=== PATIENT | female | born 1955 | race Caucasian/White ===

== ENCOUNTER 2018-02-02 20:19 | Emergency (ER) | payer OTHER ==
[~2018-02-02] VITALS: Ht 157.5 cm; Wt 56.7 kg
[2018-02-02 20:19] VITALS: BP 115/61
[2018-02-02] MEDS ORDERED: DOCU-141 GT (20:41)
[2018-02-02] MEDS ORDERED: LEVO50TA8 GT (20:41)
[2018-02-02] MEDS ORDERED: DONE5TAB7 GT (20:41)
[2018-02-02] MEDS ORDERED: ACET-868 GT (20:41)
[2018-02-02] MEDS ORDERED: CRAN3875 GT (20:41)
[2018-02-02] MEDS ORDERED: ACET-2605 GT (20:41)
[2018-02-02] MEDS ORDERED: MAGN2400 GT (20:41)
[2018-02-02] MEDS ORDERED: LEVE500T9 GT ×2 (20:41)
[2018-02-02] MEDS ORDERED: VITA1TAB20 GT (20:41)
[2018-02-02] MEDS ORDERED: ATOR20TA GT (20:41)
[2018-02-02] MEDS ORDERED: ASPI-1169 GT (20:41)
[2018-02-02 20:42] LABS: BASOPHILS # (AUTO) 0.1 /CMM (0.0-0.2); EOSINOPHILS % (AUTO) 2.4 % (0.0-6.0); HEMATOCRIT 31 % (33-45); HEMOGLOBIN 10.8 g/dL (11.5-14.8); LYMPHOCYTES # (AUTO) 2.9 /CMM (0.8-4.8); LYMPHOCYTES % (AUTO) 30.5 % (20.0-44.0); MEAN CORPUSCULAR HGB CONC 35 g/dl (31.0-36.0); MEAN CORPUSCULAR VOLUME 93 fL (82-100); MONOCYTES # (AUTO) 0.7 /CMM (0.1-1.30); NEUTROPHILS # (AUTO) 5.6 /CMM (1.8-8.9); NEUTROPHILS % (AUTO) 59.1 % (43.0-81.0); PLATELET COUNT (AUTO) 262 /CMM (150-450); RDW COEFFICIENT OF VARIATION 16.3 (11.5-15.0); RED BLOOD CELL COUNT(AUTO) 3.34 MIL/uL (4.0-5.2); WHITE BLOOD COUNT (AUTO) 9.5 K/uL (4.3-11.0)
[2018-02-02 20:53] LABS: CALCIUM, SERUM 9.3 mg/dL (8.5-10.1); CARBON DIOXIDE 29 mmol/L (21-32); CHLORIDE 106 mmol/L (98-107); CREATININE 0.8 mg/dL (0.6-1.3); GLUCOSE 101 mg/dL (74-106); POTASSIUM 3.4 mmol/L (3.5-5.1); SODIUM SERUM 142 mmol/L (136-145); UREA NITROGEN, BLOOD 23 mg/dL (7-18)
[2018-02-02 20:58] LABS: ALANINE AMINOTRANSFERASE 21 U/L (12-78); ALBUMIN 3.8 g/dL (3.4-5.0); ALCOHOL, BLOOD < 3 mg/dL (0-0); ALKALINE PHOSPHATASE 63 U/L (46-116); ASPARTATE AMINOTRANSFERASE 17 U/L (15-37); BILIRUBIN,DIRECT 0.2 mg/dL (0.0-0.2); BILIRUBIN,TOTAL 0.4 mg/dL (0.2-1.0); SALICYLATE 1.9 mg/dL (2.8-20.0); TOTAL PROTEIN, SERUM 7.6 g/dL (6.4-8.2)
[2018-02-02 20:59] LABS: ACETAMINOPHEN < 2 ug/ml (10-30)
[2018-02-02] MEDS ORDERED: HALOPERIDOL LACTATE INJ 5 MG/ML VIAL ONE (21:00)
[2018-02-02] MEDS: HALOPERIDOL LACTATE INJ 5 MG/ML VIAL IM ONE (21:06)
--- NOTE | 2018-02-02 23:05 | NUR ---
REPORT GIVEN TO [facility] ELIECER CARR FOR HU
--- NOTE | 2018-02-02 23:22 | NUR ---
[facility] bedside for pt transport.
== END 2018-02-02 23:49 | disposition home or self-care (01) ==
LOC: ER 20:22
DX: F03.90 Unspecified dementia, unspecified severity, without behavioral disturbance, psychotic disturbance, mood disturbance, and anxiety (principal); R45.1 Restlessness and agitation; K21.9 Gastro-esophageal reflux disease without esophagitis; E78.5 Hyperlipidemia, unspecified; E03.9 Hypothyroidism, unspecified; Z79.82 Long term (current) use of aspirin
CPT/HCPCS: 36415; 80048-TC; 80076-TC; 80305; 81000-TC; 85025-TC; A4606; G0480; J1630; Z7610

== ENCOUNTER 2019-02-21 17:30 | Inpatient (IN) | payer OTHER ==
[~2019-02-21] VITALS: Ht 152.4 cm; Wt 41.7 kg
[~2019-02-21 17:30] MED LIST: ACET-2605 GT; ACET-868 GT; ASPI-1169 PO; ATOR20TA GT; CRAN3875 GT; DOCU-141 GT; DONE5TAB7 GT; LEVE500T9 GT; LEVE500T9 PO; LEVO50TA8 GT; MAGN2400 GT; VITA1TAB20 GT
--- NOTE | 2019-02-21 17:35 | NUR ---
DAUGHTER, YUDI ANTHONY, .
--- NOTE | 2019-02-21 17:40 | NUR ---
BRUCE FROM [facility] FOR WITNESSED SZ, HX OF EPILEPSY; PT AAOX0, PT ON MONITOR, VSS, NAD NOTED, PENDING MD HERR
[2019-02-21] MEDS ORDERED: LORAZEPAM INJ 2 MG/ML VIAL ONE (17:49)
[2019-02-21] MEDS ORDERED: HALO2TAB PO (17:50)
[2019-02-21] MEDS ORDERED: CRAN425C6 PO (17:50)
[2019-02-21] MEDS ORDERED: DONE5TAB7 PO (17:50)
[2019-02-21] MEDS ORDERED: CLON1TAB PO (17:50)
[2019-02-21] MEDS ORDERED: ACET-73 PO (17:59)
[2019-02-21] MEDS ORDERED: CRAN3875 PO (17:59)
[2019-02-21] MEDS ORDERED: ATOR20TA PO (17:59)
[2019-02-21] MEDS ORDERED: ACET650T10 PO (17:59)
[2019-02-21] MEDS ORDERED: LEVO50TA8 PO (17:59)
[2019-02-21] MEDS ORDERED: LORAZEPAM INJ 2 MG/ML VIAL IVP ONE (18:00)
[2019-02-21 18:04] LABS: BASOPHILS % (AUTO) 0.1 % (0.0-2.0); HEMATOCRIT 36 % (33-45); HEMOGLOBIN 11.9 g/dL (11.5-14.8); LYMPHOCYTES # (AUTO) 0.9 /CMM (0.8-4.8); LYMPHOCYTES % (AUTO) 5.5 % (20.0-44.0); MEAN CORPUSCULAR HGB CONC 33 g/dl (31.0-36.0); MEAN CORPUSCULAR VOLUME 95 fL (82-100); MONOCYTES # (AUTO) 0.8 /CMM (0.1-1.30); MONOCYTES % (AUTO) 4.9 % (2.0-12.0); NEUTROPHILS # (AUTO) 15.3 /CMM (1.8-8.9); NEUTROPHILS % (AUTO) 89.5 % (43.0-81.0); PLATELET COUNT (AUTO) 177 /CMM (150-450); RED BLOOD CELL COUNT(AUTO) 3.75 MIL/uL (4.0-5.2); WHITE BLOOD COUNT (AUTO) 17.1 K/uL (4.3-11.0)
[2019-02-21 18:11] LABS: CALCIUM, SERUM 8.9 mg/dL (8.5-10.1); CREATININE 0.8 mg/dL (0.6-1.3); POTASSIUM 3.3 mmol/L (3.5-5.1)
[2019-02-21] MEDS ORDERED: CEFTRIAXONE 1GM BAG (ER ONLY) 50 ML IV ONE ×2 (19:30→19:39)
[2019-02-21] MEDS ORDERED: IV NS 0.9% 1,000 ML BAG IV ONE (19:30)
[2019-02-21 19:39] LABS: ALANINE AMINOTRANSFERASE 67 U/L (12-78); ALBUMIN 3.8 g/dL (3.4-5.0); ALKALINE PHOSPHATASE 78 U/L (46-116); ASPARTATE AMINOTRANSFERASE 48 U/L (15-37); BILIRUBIN,DIRECT 0.1 mg/dL (0.0-0.2); BILIRUBIN,TOTAL 0.4 mg/dL (0.2-1.0); TOTAL PROTEIN, SERUM 7.2 g/dL (6.4-8.2)
[2019-02-21 20:02] LABS: APPEARANCE,URINE Cloudy (CLEAR); BILIRUBIN,URINE Negative (NEGATIVE); BLOOD, URINE Negative Ery/uL (NEGATIVE); COLOR,URINE Yellow (YELLOW); KETONES,URINE Trace (NEGATIVE); LEUKOCYTE ESTERASE ,URINE Negative (NEGATIVE); NITRITE, URINE Positive (NEGATIVE); PH,URINE 7.5 (5.0-8.0); PROTEIN,URINE 30 mg/dl (NEGATIVE); UGLUCOSE 100 MG/DL mg/dL (NEGATIVE)
[2019-02-21 20:14] LABS: BACTERIA,URINE Many /HPF (None Seen); RBC,URINE 0-2 /HPF (0-2); SQUAMOUS EPITHELIAL CELL,UR Rare /HPF (None Seen); WBC,URINE 0-2 /HPF (0-3)
--- NOTE | 2019-02-21 20:45 | NUR ---
CALLED NURSING SUP. FOR TELE BED
--- NOTE | 2019-02-21 21:03 | NUR ---
TELE 327-2
[2019-02-21] MEDS ORDERED: HALOPERIDOL LACTATE INJ 5 MG/ML VIAL IM STA (21:16)
[2019-02-21] MEDS ORDERED: HALOPERIDOL LACTATE INJ 5 MG/ML VIAL ONE (21:19)
--- NOTE | 2019-02-21 21:29 | NUR ---
REPORT GIVEN TO JANENE GONZÁLES.
[2019-02-21] MEDS ORDERED: ONDANSETRON HCL/PF 4 MG/2 ML VIAL IVP PRN (21:30)
[2019-02-21] MEDS ORDERED: ZOLPIDEM TARTRATE 5 MG TABLET PO PRN (21:30)
[2019-02-21] MEDS ORDERED: Z GUARD REMEDY 2 OZ OINT TP PRN (21:30)
[2019-02-21] MEDS ORDERED: ACETAMINOPHEN 325 MG TABLET PO PRN (21:30)
[2019-02-21] MEDS ORDERED: MAGNESIUM HYDROXIDE 30 ML UDC PO PRN (21:30)
[2019-02-21] MEDS ORDERED: MAG HYDROX/AL HYDROX/SIMETH 30 ML UDC PO PRN (21:30)
--- NOTE | 2019-02-21 21:34 | NUR ---
FOOD AND BEVERAGE ANALYST ADMISSION NOTES RECEIVED PATIENT FROM ER VIA [facility]. DX. SEPSIS. FAMILY AT BEDSIDE. PATIENT IS ALERT X0, CONFUSED. UNABLE TO COMPREHEND. SCREAMS/MOANS CONTINUOUSLY. PER FAMILY PATIENT IS HARD OF HEARING ON BOTH EARS AND CAN ONLY "SHADOWS." BREATHING IS EVEN AND UNLABORED. NO SOB NOTED. ON 2LPM OXYGEN VIA NC. TOLERATING WELL. UNABLE TO ASSESS FOR PAIN PATIENT JUST KEEPS SCREAMING. SKIN DRY AND WARM TO TOUCH, AFEBRILE. PATIENT ATTEMPTS TO REMOVE IV LINE AND NASAL CANNULA. ALSO TRYING TO GET OUT OF BED. FAMILY IS REQUESTING FOR RESTRAINTS - WILL INFORM REGIONAL LIAISON MD. ALL BELONGINGS ACCOUNTED FOR. SKIN ASSESSMENT DONE - NOTED WITH MULTIPLE BROWN BRUISES ON THE LOWER EXTREMITY. FAMILY AT BEDSIDE TRYING TO CALM PATIENT BUT UNSUCCESSFUL. SAFETY MEASURES IN PLACE. CALL LIGHT WITHIN REACH. WILL CONTINUE TO MONITOR CLOSELY.
[2019-02-21 22:00] VITALS: BP 123/70
--- NOTE | 2019-02-21 22:01 | NUR ---
ELECTRIC STOP INSTALLER NOTES PATIENT CONTINUOUSLY TRIES TO PULL ON IV LINE. ATTEMPTING TO GET UP DESPITE FAMILY AT BEDSIDE TRYING TO COME HER DOWN. PATIENT ALSO GRABS REALLY HARD OR ATTEMPTS TO SCRATCH STAFF. PAGED EDGER OPERATOR VICTOR M BALLESTEROS FOR POSSIBLE RESTRAINTS. PER EDGER OPERATOR VICTOR M, OK FOR PATIENT TO HAVE BILATERAL RESTRAINTS. ORDER NOTED AND CARRIED OUT. FAMILY MADE AWARE. WILL CONTINUE TO MONITOR.
--- NOTE | 2019-02-21 23:13 | NUR ---
LIGHT INDUSTRIAL NOTES PATIENT'S REDRAWN LACTIC ACID IS 3.4. ELEVATED FROM THE PRIOR DRAW. INFORMED HEEL GUMMER VICTOR M BALLESTEROS WITH NO NEW ORDERS AT THIS TIME. WILL CONTINUE TO MONITOR.
[2019-02-21] MEDS: HYDROCODONE/APAP 5/325MG 1 EACH TABLET PO PRN (23:18)
[2019-02-21] MEDS: DOCUSATE SODIUM 100 MG CAPSULE PO SCH (23:18)
[2019-02-22] VITALS: BP 128/70
[2019-02-22] MEDS ORDERED: IV PREMIX NS +20MEQ KCL 1 L IV ONE (00:21)
--- NOTE | 2019-02-22 00:57 | NUR ---
FEED WEIGHER NOTES INFORMED COLLECTION MANAGER VICTOR M BALLESTEROS THAT PATIENT IS STILL RESTLESS AND SCREAMING DESPITE THE HALDOL AND ATIVAN GIVEN IN ER. PER COLLECTION MANAGER FAVIAN, ATIVAN 1MG IVP X1 ONLY. ORDER NOTED AND CARRIED OUT.
[2019-02-22] MEDS ORDERED: LORAZEPAM INJ 2 MG/ML VIAL IV PRN (01:00)
[2019-02-22] MEDS: Potassium Chloride 20 MEQ in IV NS 0.9% 1,000 ML IV PRN ×2 (02:26→17:15)
[2019-02-22 04:00] VITALS: BP 118/76
--- NOTE | 2019-02-22 06:30 | NUR ---
TECHNICAL TRAINING MANAGER NOTES IV LINE ON RIGHT HAND NO LONGER WORKING. NOTED LEAKING ON THE SITE. NEW IV LINE INSERTED ON THE LEFT UPPER ARM G#20. GOOD BLOOD RETURN. WILL CONTINUE TO MONITOR.
--- NOTE | 2019-02-22 06:55 | NUR ---
PSYCHOLOGY PROFESSOR CLOSING NOTES PATIENT IN BED. REMAINS RESTLESS. UNABLE TO COMPREHEND OR FOLLOW INSTRUCTIONS ON BILATERAL WRIST RESTRAINTS TO PREVENT PULLING LINES/TUBES. BREATHING EVEN AND UNLABORED. NO SOB NOTED. ON 1LPM OXYGEN VIA NC. UNABLE TO ASSESS PAIN DUE TO MENTAL STATUS, PATIENT JUST CONTINUOUSLY MOANS/SCREAMS DESPITE PAIN MEDICATION. NEW IV LINE ON LEFT UPPER ARM G#20 INSERTED DUE TO PREVIOUS IV LINE LEAKING. IV FLUIDS CURRENTLY INFUSING WELL. SKIN DRY AND WARM TO TOUCH. AFEBRILE. ALL OTHER NEEDS MET. SAFETY MEASURES IN PLACE. CALL LIGHT WITHIN REACH. WILL ENDORSE TO ONCOMING NURSE FOR HU.
[2019-02-22 07:26] LABS: BASOPHILS % (AUTO) 0.2 % (0.0-2.0); EOSINOPHILS % (AUTO) 0.2 % (0.0-6.0); HEMATOCRIT 35 % (33-45); HEMOGLOBIN 11.9 g/dL (11.5-14.8); LYMPHOCYTES # (AUTO) 1.7 /CMM (0.8-4.8); LYMPHOCYTES % (AUTO) 13.5 % (20.0-44.0); MEAN CORPUSCULAR HGB CONC 34 g/dl (31.0-36.0); MEAN CORPUSCULAR VOLUME 94 fL (82-100); MONOCYTES # (AUTO) 0.8 /CMM (0.1-1.30); MONOCYTES % (AUTO) 6.1 % (2.0-12.0); NEUTROPHILS # (AUTO) 9.8 /CMM (1.8-8.9); PLATELET COUNT (AUTO) 151 /CMM (150-450); RED BLOOD CELL COUNT(AUTO) 3.76 MIL/uL (4.0-5.2); WHITE BLOOD COUNT (AUTO) 12.2 K/uL (4.3-11.0)
[2019-02-22] MEDS: LEVOTHYROXINE SODIUM 50 MCG TABLET PO SCH (07:30)
[2019-02-22] MEDS: PANTOPRAZOLE 40 MG TABLET.DR PO SCH (07:30)
[2019-02-22 07:37] LABS: CALCIUM, SERUM 9.1 mg/dL (8.5-10.1); CREATININE 0.6 mg/dL (0.6-1.3); MAGNESIUM 2.4 mg/dL (1.8-2.4); PHOSPHORUS 2.6 mg/dL (2.5-4.9); POTASSIUM 3.5 mmol/L (3.5-5.1)
--- NOTE | 2019-02-22 07:56 | NUR ---
PHARMACY DISTRICT MANAGER NOTES PATIENT AWAKE, LYING IN BED. PATIENT IN NO RESPIRATORY DISTRESS, PATIENT UNABLE TO MAKE NEEDS KNOWN. PATIENT ON BILATERAL WRIST RESTRAINTS, REMOVED AND ASSESSED, NO REDNESS NOTED. SKIN WARM TO TOUCH. PATIENT ON IV NS 20MEQ K AT 75ML/HR, INFUSING WELL ON THE KEN #20G. PATIENT ON NPO STATUS, SWALLOW EVAL STILL PENDING. BED IN LOW AND LOCKED POSITION, SIDE RAILS UP AND PADDED. CALL LIGHT WITHIN REACH. WILL CONTINUE TO MONITOR.
[2019-02-22 08:00] VITALS: BP 119/70
[2019-02-22] MEDS: ASPIRIN 81 MG TAB.CHEW GT SCH (09:00)
[2019-02-22] MEDS: HALOPERIDOL LACTATE 10 MG/5 ML UDC PO SCH (09:00)
[2019-02-22] MEDS: clonazePAM 1 MG TABLET PO SCH (09:00)
[2019-02-22] MEDS: LEVETIRACETAM (250 MG) 250 MG TABLET PO SCH (09:00)
[2019-02-22] MEDS: DONEPEZIL 5 MG TABLET PO SCH (09:00)
[2019-02-22] MEDS ORDERED: HALOPERIDOL 1 MG TABLET PO SCH (09:00)
[2019-02-22] MEDS: CEFTRIAXONE 1 G in IV D5W 50 ML IV SCH (10:09)
[2019-02-22] MEDS: ENSURE ENLIVE 237 ML LIQUID (VANILLA) PO SCH ×2 (12:03→17:24)
[2019-02-22 16:00] VITALS: BP 102/70
--- NOTE | 2019-02-22 17:38 | NUR ---
M/S RN NOTES PATIENT AWAKE, LYING IN BED WITH NO RESPIRATORY DISTRESS NOTED. PATIENT ON 2L OXYGEN VIA NASAL CANULA, TOLERATING WELL. PATIENT WITH NO S/S OF PAIN. IV NS+20MEQ K @75ML/HR, INFUSING WELL. PATIENT SEEN BY SPEECH THERAPIST AND MAT CLEANING MACHINE OPERATOR TODAY, ORDERED PUREED WITH NECTAR THICK DIET. WILL ENDORSE TO ONCOMING NURSE.
--- NOTE | 2019-02-22 19:05 | NUR ---
MS RN OPENING NOTES Patient received laying in bed, awake, with no respiratory distress. Patient on O2 at 2LPM via nasal cannula, tolerating well. Peripheral IV on left upper arm g#20 with NS+20 mEq KCl @7smL/hr. Bilateral soft wrist restraints in place. Safety measures in place, call light within reach. Bed in lowest, locked position, side rails x 3 up. Seizure precaution in place. Patient stable as endorsed by the AM RN. Will continue to monitor accordingly
[2019-02-22 20:00] VITALS: BP 100/75
[2019-02-22 20:39] VITALS: BP 100/75
--- NOTE | 2019-02-22 21:00 | NUR ---
RN NOTES Urine sample obtained- sent to lab
[2019-02-22] MEDS: DOCUSATE SODIUM 100 MG CAPSULE PO SCH (21:12)
[2019-02-22] MEDS: ATORVASTATIN 10 MG TABLET PO SCH (21:12)
[2019-02-23] MEDS: Potassium Chloride 20 MEQ in IV NS 0.9% 1,000 ML IV PRN ×2 (06:15→18:34)
--- NOTE | 2019-02-23 06:58 | NUR ---
MS RN CLOSING NOTES Patient in bed, awake, with no respiratory distress. Patient on O2 at 2LPM via nasal cannula, tolerating well. Peripheral IV on left upper arm g#20 with NS+20 mEq KCl @7smL/hr. Bilateral soft wrist restraints in place. Safety measures in place, call light within reach. Bed in lowest, locked position, side rails x 3 up. Seizure precaution in place. All needs attended and met. Will endorse HU to oncoming RN
[2019-02-23] MEDS: LEVOTHYROXINE SODIUM 50 MCG TABLET PO SCH (07:28)
[2019-02-23] MEDS: ENSURE ENLIVE 237 ML LIQUID (VANILLA) PO SCH ×3 (07:28→17:38)
[2019-02-23] MEDS: PANTOPRAZOLE 40 MG TABLET.DR PO SCH (07:28)
[2019-02-23 07:44] LABS: BASOPHILS % (AUTO) 0.2 % (0.0-2.0); EOSINOPHILS % (AUTO) 0.2 % (0.0-6.0); HEMATOCRIT 33 % (33-45); HEMOGLOBIN 11.2 g/dL (11.5-14.8); LYMPHOCYTES % (AUTO) 12.7 % (20.0-44.0); MEAN CORPUSCULAR HGB CONC 34 g/dl (31.0-36.0); MEAN CORPUSCULAR VOLUME 95 fL (82-100); MONOCYTES % (AUTO) 6.4 % (2.0-12.0); NEUTROPHILS % (AUTO) 80.5 % (43.0-81.0); PLATELET COUNT (AUTO) 138 /CMM (150-450); RED BLOOD CELL COUNT(AUTO) 3.44 MIL/uL (4.0-5.2); WHITE BLOOD COUNT (AUTO) 9.4 K/uL (4.3-11.0)
[2019-02-23 07:45] LABS: LYMPHOCYTES # (AUTO) 1.2 /CMM (0.8-4.8); MONOCYTES # (AUTO) 0.6 /CMM (0.1-1.30); NEUTROPHILS # (AUTO) 7.6 /CMM (1.8-8.9)
[2019-02-23 08:00] VITALS: BP 109/58
[2019-02-23] MEDS: LEVETIRACETAM (250 MG) 250 MG TABLET PO SCH (08:08)
[2019-02-23] MEDS: DONEPEZIL 5 MG TABLET PO SCH (08:08)
[2019-02-23] MEDS: clonazePAM 1 MG TABLET PO SCH (08:08)
[2019-02-23] MEDS: ASPIRIN 81 MG TAB.CHEW GT SCH (08:08)
[2019-02-23 08:10] LABS: CREATININE 0.4 mg/dL (0.6-1.3); PHOSPHORUS 2.4 mg/dL (2.5-4.9); POTASSIUM 3.8 mmol/L (3.5-5.1)
[2019-02-23] MEDS: HALOPERIDOL LACTATE 10 MG/5 ML UDC PO SCH (08:18)
--- NOTE | 2019-02-23 08:39 | NUR ---
M/S RN NOTES PATIENT AWAKE IN BED, NO ACUTE DISTRESS NOTED, NO S/S OF PAIN. SKIN WARM TO TOUCH. IVF OF NS+20MEQ KCL INFUSING @ 75ML/HR ON THE KNE #20, INTACT WITH NO REDNESS AND NO INFILTRATION. BED ON LOW AND LOCKED POSITION, CALL LIGHT WITHIN REACH. WILL CONTINUE TO MONITOR.
[2019-02-23] MEDS: CEFTRIAXONE 1 G in IV D5W 50 ML IV SCH (09:02)
--- NOTE | 2019-02-23 10:30 | NUR ---
MS/RN - CRITICAL VALUE RELAYED BLOOD CULTURE RESULT (GRAM POSITIVE COCCI) TO DR. SMITH WITH NO NEW ORDER AT THIS TIME. PATIENT CURRENTLY ON ROCEPHIN.
[2019-02-23] MEDS ORDERED: Magnesium 1GM/D5W 100ML PREMIX 100 ML IV SCH (11:12)
[2019-02-23] MEDS ORDERED: K PHOS NEUTRAL 250 MG TABLET PO ONE (11:30)
[2019-02-23 16:00] VITALS: BP 142/90
--- NOTE | 2019-02-23 17:57 | NUR ---
M/S RN NOTES PATIENT MORE AWAKE, LYING IN BED. PATIENT WITH NO RESPIRATORY DISTRESS, NO C/O PAIN. SKIN WARM TO TOUCH. IVF OF NS+20MEQ KCL @75ML/HR INFUSING WELL ON KEN #20G. PATIENT REPOSITIONED Q2HRS. REMOVED AND CHECKED SOFT RESTRAINTS Q2HRS WITH NO REDNESS. PATIENT'S APPETITE IMPROVED TODAY WITH PATIENT EATING 50% OF MEALS AND ENSURE ORDERED. BED ON LOW AND LOCKED POSITION, CALL LIGHT WITHIN REACH. WILL ENDORSE TO ONCOMING NURSE.
[2019-02-23] MEDS ORDERED: FEE PK DOSING 1 MIN EA MC ONE (19:36)
--- NOTE | 2019-02-23 19:38 | NUR ---
RN MS OPENING NOTES RECEIVED PATIENT IN BED AWAKE, ALERT TO SELF, BREATHING EVEN AND UNLABORED. NO SOB NOTED. ON 2LPM OXYGEN VIA NC. NO S/S OF PAIN OR DISCOMFORT. NO FACIAL GRIMACING. IV ON LEFT UPPER ARM INTACT AND PATENT WITH IVF INFUSING. SKIN DRY AND WARM TO TOUCH. AFEBRILE. PATIENT ON BILATERAL WRIST RESTRAINTS. NO REDNESS/SKIN BREAKDOWN NOTED. SAFETY MEASURES IN PLACE. CALL LIGHT WITHIN REACH. WILL CONTINUE TO MONITOR.
[2019-02-23] MEDS: VANCOMYCIN 0.75 GM in IV D5W 250 ML IV SCH (20:08)
[2019-02-23 20:14] VITALS: BP 136/76
[2019-02-23] MEDS: DOCUSATE SODIUM 100 MG CAPSULE PO SCH (21:54)
[2019-02-23] MEDS: ATORVASTATIN 10 MG TABLET PO SCH (21:54)
[2019-02-24 06:23] LABS: BASOPHILS % (AUTO) 0.2 % (0.0-2.0); EOSINOPHILS % (AUTO) 0.8 % (0.0-6.0); HEMATOCRIT 32 % (33-45); HEMOGLOBIN 10.9 g/dL (11.5-14.8); LYMPHOCYTES # (AUTO) 1.3 /CMM (0.8-4.8); LYMPHOCYTES % (AUTO) 14.3 % (20.0-44.0); MEAN CORPUSCULAR HGB CONC 34 g/dl (31.0-36.0); MEAN CORPUSCULAR VOLUME 94 fL (82-100); MONOCYTES # (AUTO) 0.6 /CMM (0.1-1.30); MONOCYTES % (AUTO) 6.6 % (2.0-12.0); NEUTROPHILS # (AUTO) 7.4 /CMM (1.8-8.9); NEUTROPHILS % (AUTO) 78.1 % (43.0-81.0); PLATELET COUNT (AUTO) 139 /CMM (150-450); RED BLOOD CELL COUNT(AUTO) 3.41 MIL/uL (4.0-5.2); WHITE BLOOD COUNT (AUTO) 9.5 K/uL (4.3-11.0)
[2019-02-24 06:39] LABS: CALCIUM, SERUM 8.9 mg/dL (8.5-10.1); CREATININE 0.4 mg/dL (0.6-1.3); MAGNESIUM 2.1 mg/dL (1.8-2.4); PHOSPHORUS 2.9 mg/dL (2.5-4.9); POTASSIUM 3.7 mmol/L (3.5-5.1)
--- NOTE | 2019-02-24 07:05 | NUR ---
RN MS CLOSING NOTES PATIENT RESTING IN BED. NO ACUTE CHANGES THROUGHOUT SHIFT. BREATHING EVEN AND UNLABORED. NO SOB NOTED. ON 2LPM OXYGEN VIA NC. NO S/S OF PAIN OR DISCOMFORT. NO FACIAL GRIMACING. IV ON LEFT UPPER ARM INTACT AND PATENT WITH IVF INFUSING. SKIN DRY AND WARM TO TOUCH. PATIENT REMAINS ON BILATERAL WRIST RESTRAINTS. NO REDNESS/SKIN BREAKDOWN NOTED. SAFETY MEASURES IN PLACE. CALL LIGHT WITHIN REACH. WILL ENDORSE TO ONCOMING NURSE FOR HU.
--- NOTE | 2019-02-24 07:32 | NUR ---
M/S RN NOTES PATIENT AWAKE IN BED, NO RESPIRATORY DISTRESS NOTED, ON 02 AT 2L VIA NASAL CANULA. PATIENT WITH NO C/O PAIN. SKIN DRY AND WARM TO TOUCH. SOFT WRIST RESTRAINTS REMOVED, SKIN ASSESSED FOR REDNESS AND CIRCULATION. IVF OF NS+20MEQ KCL INFUSING WELL @ 75ML/HR ON THE KEN #20G, NO REDNESS, NO INFILTRATION. BED ON LOW AND LOCKED POSITION, CALL LIGHT WITHIN REACH. WILL CONTINUE TO MONITOR.
[2019-02-24 08:00] VITALS: BP 159/72
[2019-02-24] MEDS: LEVOTHYROXINE SODIUM 50 MCG TABLET PO SCH (08:17)
[2019-02-24] MEDS: LEVETIRACETAM (250 MG) 250 MG TABLET PO SCH (08:17)
[2019-02-24] MEDS: PANTOPRAZOLE 40 MG TABLET.DR PO SCH (08:17)
[2019-02-24] MEDS: DONEPEZIL 5 MG TABLET PO SCH (08:18)
[2019-02-24] MEDS: clonazePAM 1 MG TABLET PO SCH (08:18)
[2019-02-24] MEDS: HALOPERIDOL LACTATE 10 MG/5 ML UDC PO SCH (08:18)
[2019-02-24] MEDS: ASPIRIN 81 MG TAB.CHEW GT SCH (08:18)
[2019-02-24] MEDS: ENSURE ENLIVE 237 ML LIQUID (VANILLA) PO SCH ×3 (08:19→17:54)
[2019-02-24] MEDS: VANCOMYCIN 0.75 GM in IV D5W 250 ML IV SCH ×2 (08:28→20:19)
[2019-02-24] MEDS: CEFTRIAXONE 1 G in IV D5W 50 ML IV SCH (10:14)
[2019-02-24] MEDS: Potassium Chloride 20 MEQ in IV NS 0.9% 1,000 ML IV PRN (11:16)
--- NOTE | 2019-02-24 15:15 | NUR ---
M/S RN NOTES PATIENT RECEIVED ROCEPHIN AND VACOMYCIN TODAY. VANCO TROUGH ORDERED FOR TODAY AT 1900
[2019-02-24 16:00] VITALS: BP 140/80
--- NOTE | 2019-02-24 18:35 | NUR ---
M/S RN NOTES PATIENT RESTING IN BED, NO RESPIRATORY DISTRESS, NO C/O PAIN. IVF OF NS+20MEQ KCL INFUSING AT 75ML/HR ON THE KEN #20G, NO REDNESS, NO INFILTRATION NOTED. SOFT RESTRAINTS REMOVED AND ASSESSED SKIN AND CIRCULATION. SKIN WARM TO TOUCH.. BED ON LOW AND LOCKED POSITION, CALL LIGHT WITHIN REACH. WILL ENDORSE TO ONCOMING NURSE.
[2019-02-24 20:00] VITALS: BP 150/73
[2019-02-24] MEDS: ATORVASTATIN 10 MG TABLET PO SCH (21:07)
[2019-02-24] MEDS: DOCUSATE SODIUM 100 MG CAPSULE PO SCH (21:07)
[2019-02-25] MEDS: Potassium Chloride 20 MEQ in IV NS 0.9% 1,000 ML IV PRN ×2 (01:39→19:07)
[2019-02-25 06:32] LABS: BASOPHILS % (AUTO) 0.2 % (0.0-2.0); EOSINOPHILS % (AUTO) 4.3 % (0.0-6.0); HEMATOCRIT 34 % (33-45); HEMOGLOBIN 11.5 g/dL (11.5-14.8); LYMPHOCYTES # (AUTO) 1.5 /CMM (0.8-4.8); LYMPHOCYTES % (AUTO) 17.7 % (20.0-44.0); MEAN CORPUSCULAR HGB CONC 34 g/dl (31.0-36.0); MEAN CORPUSCULAR VOLUME 95 fL (82-100); MONOCYTES # (AUTO) 0.7 /CMM (0.1-1.30); MONOCYTES % (AUTO) 8.2 % (2.0-12.0); NEUTROPHILS # (AUTO) 5.9 /CMM (1.8-8.9); NEUTROPHILS % (AUTO) 69.6 % (43.0-81.0); PLATELET COUNT (AUTO) 155 /CMM (150-450); RED BLOOD CELL COUNT(AUTO) 3.59 MIL/uL (4.0-5.2); WHITE BLOOD COUNT (AUTO) 8.5 K/uL (4.3-11.0)
--- NOTE | 2019-02-25 06:35 | NUR ---
RN MS CLOSING NOTES PATIENT RESTING IN BED. NO ACUTE CHANGES THROUGHOUT SHIFT. BREATHING EVEN AND UNLABORED. NO SOB NOTED. ON 2LPM OXYGEN VIA NC. NO S/S OF PAIN OR DISCOMFORT. NO FACIAL GRIMACING. IV ON LEFT UPPER ARM INTACT AND PATENT WITH IVF INFUSING. SKIN DRY AND WARM TO TOUCH. PATIENT REMAINS ON BILATERAL WRIST RESTRAINTS FOR SAFETY. NO REDNESS/SKIN BREAKDOWN NOTED. SAFETY MEASURES IN PLACE. CALL LIGHT WITHIN REACH. WILL ENDORSE TO ONCOMING NURSE FOR HU.
[2019-02-25 07:10] LABS: CALCIUM, SERUM 9.2 mg/dL (8.5-10.1); CREATININE 0.5 mg/dL (0.6-1.3); MAGNESIUM 2.3 mg/dL (1.8-2.4); PHOSPHORUS 3.4 mg/dL (2.5-4.9); POTASSIUM 3.6 mmol/L (3.5-5.1)
[2019-02-25 08:00] VITALS: BP_SYST 105; BP_SYST 116; BP_DIAS 55; BP_DIAS 75
[2019-02-25] MEDS: ENSURE ENLIVE 237 ML LIQUID (VANILLA) PO SCH ×3 (08:00→17:36)
[2019-02-25] MEDS ORDERED: VANCOMYCIN 1 GM in IV D5W 250 ML IV SCH (08:00)
--- NOTE | 2019-02-25 08:00 | NUR ---
m/s consumer loan underwriter: initial assessment received pt in bed awake, alert to self only. pt remains confused and disoriented to time, place, and situation. dana wrist soft restraint on and release every 2 hours and prn for circulation and adl's. pt unable to comprehend. reality orientation provided prn. sitter at bedside.
[2019-02-25] MEDS: ASPIRIN 81 MG TAB.CHEW GT SCH (08:37)
[2019-02-25] MEDS: LEVETIRACETAM (250 MG) 250 MG TABLET PO SCH (08:37)
[2019-02-25] MEDS: LEVOTHYROXINE SODIUM 50 MCG TABLET PO SCH (08:37)
[2019-02-25] MEDS: DONEPEZIL 5 MG TABLET PO SCH (08:37)
[2019-02-25] MEDS: PANTOPRAZOLE 40 MG TABLET.DR PO SCH (08:37)
[2019-02-25] MEDS: clonazePAM 1 MG TABLET PO SCH (08:38)
[2019-02-25] MEDS: HALOPERIDOL LACTATE 10 MG/5 ML UDC PO SCH (08:40)
--- NOTE | 2019-02-25 08:43 | NUR ---
m/s line driver: notes vancomycin ivpb not available at this time, f/u made to pharmacist, spoke to milton and will send as stated.
[2019-02-25] MEDS: CEFTRIAXONE 1 G in IV D5W 50 ML IV SCH (09:55)
--- NOTE | 2019-02-25 10:00 | NUR ---
m/s journeyman molder: notes dana soft wrist restraint released and repositioned for adl's and circulation. kept clean and dry. good pericare rendered by staff. will continue to monitor.
--- NOTE | 2019-02-25 12:00 | NUR ---
m/s surgical dressing maker: notes lunch served. release dana soft wrist restraint. hob elevated. sitter assisted pt with her meal. reality orientation provided prn. will continue to monitor.
--- NOTE | 2019-02-25 13:00 | NUR ---
m/s oleo hasher and renderer: notes pt ate good for lunch. repositioned dana wrist restraint. reality orientation provided prn. sitter remains at bedside. will continue to monitor.
--- NOTE | 2019-02-25 14:00 | NUR ---
m/s pipeline superintendent: notes released and repositioned dana wrist restraint for adl's and circulation. will continue to monitor.
[2019-02-25 16:00] VITALS: BP 126/70
--- NOTE | 2019-02-25 16:00 | NUR ---
m/s pier hand helper: notes released and repositioned dana wrist restraint for adl's and circulation. will continue to monitor. sitter remains at bedside. will monitor.
[2019-02-25] MEDS: LACTOBACILLUS RHAMNOSUS GG 1 EACH CAP.SPRINK PO SCH (17:37)
--- NOTE | 2019-02-25 18:39 | NUR ---
m/s oil change technician: id f/u seen by yoshi (nonprofit director) with order. pt to start on gentamycin ivpb. order acknowledged. needs attended. pt resting comfortable in bed. dana wrist restraints released and repositioned q2hr and prn. sitter remains at bedside. will continue to monitor.
--- NOTE | 2019-02-25 19:00 | NUR ---
m/s irrigation specialist: notes report given to pascual (rn) for continuity of care.
[2019-02-25] MEDS ORDERED: FEE PK DOSING 1 MIN EA MC ONE (19:04)
[2019-02-25 20:00] VITALS: BP 118/69
--- NOTE | 2019-02-25 20:00 | NUR ---
RN NOTES RECEIVED PATIENT IN BED, ALERT AND AWAKE, CONFUSED, RESTLESS, ON 2LPM VIA NC, SPO2 98%, NOT IN APPARENT PAIN, NO FACIAL GRIMACING, NO MOANING, ON ASPIRATION PRECAUTION, PUREED DIET, SEIZURE PRECAUTION, SOFT BILATERAL WRIST RESTRAINTS IN PLACE DUE TO PATIENT PULLING OUT IV LINES, VANCOMYCIN CHANGED TO GENTAMICIN, WILL GIVE INITIAL DOSE, REPOSITIONED FOR COMFORT, CALL LIGHT WITHIN REACH.
[2019-02-25] MEDS: GENTAMICIN IV SCH (20:24)
[2019-02-25] MEDS: NS 0.9% IV SCH (20:24)
[2019-02-25] MEDS: DOCUSATE SODIUM 100 MG CAPSULE PO SCH (21:36)
[2019-02-25] MEDS: ATORVASTATIN 10 MG TABLET PO SCH (21:36)
--- NOTE | 2019-02-26 06:30 | NUR ---
RN NOTES PATIENT IS ALERT AND AWAKE, LETHARGIC, 2LPM VIA NC, SPO2 98%, NOT IN APPARENT PAIN, RESTLESS AT TIMES, HITTING AND KICKING, ON BILATERAL SOFT RESTRAINTS, CONTINUE IVF, GENTAMICIN IV, AWAITING PSYCH EVAL
[2019-02-26 07:30] LABS: MAGNESIUM 2.2 mg/dL (1.8-2.4); PHOSPHORUS 3.9 mg/dL (2.5-4.9)
[2019-02-26 07:35] LABS: BASOPHILS % (AUTO) 0.3 % (0.0-2.0); EOSINOPHILS % (AUTO) 4.1 % (0.0-6.0); HEMATOCRIT 30 % (33-45); HEMOGLOBIN 10.4 g/dL (11.5-14.8); LYMPHOCYTES # (AUTO) 1.3 /CMM (0.8-4.8); MEAN CORPUSCULAR HGB CONC 34 g/dl (31.0-36.0); MEAN CORPUSCULAR VOLUME 94 fL (82-100); MONOCYTES # (AUTO) 0.8 /CMM (0.1-1.30); MONOCYTES % (AUTO) 9.1 % (2.0-12.0); NEUTROPHILS # (AUTO) 6.6 /CMM (1.8-8.9); NEUTROPHILS % (AUTO) 72.5 % (43.0-81.0); PLATELET COUNT (AUTO) 165 /CMM (150-450); RED BLOOD CELL COUNT(AUTO) 3.23 MIL/uL (4.0-5.2); WHITE BLOOD COUNT (AUTO) 9.1 K/uL (4.3-11.0)
[2019-02-26 07:37] LABS: GENTAMICIN,TROUGH 3.9 ug/ml (0.2-2.0)
--- NOTE | 2019-02-26 07:48 | NUR ---
RN OPENING NOTES PT AWAKE AND RESTING IN BED. PT CONFUSED. NO APPARENT S/S OF PAIN, DISTRESS OR SOB AT THIS TIME. PT HAS BILATERAL SOFT WRIST RESTRAINTS, PER PATIENT PULLING AT LINES AND REMOVING IVS. PT HAS KEN #20 IV RUNNING NS + KCL 20 MEQ @75ML/HR. SAFETY PRECAUTIONS IN PLACE, BED IN LOWEST LOCKED POSITION, X2 SIDE RAILS UP AND CALL LIGHT WITHIN REACH. WILL CONTINUE TO MONITOR.
[2019-02-26 07:49] LABS: CREATININE 0.8 mg/dL (0.6-1.3); POTASSIUM 3.8 mmol/L (3.5-5.1)
[2019-02-26 08:00] VITALS: BP 125/74
[2019-02-26] MEDS: PANTOPRAZOLE 40 MG TABLET.DR PO SCH (08:17)
[2019-02-26] MEDS: LEVOTHYROXINE SODIUM 50 MCG TABLET PO SCH (08:17)
[2019-02-26] MEDS: ASPIRIN 81 MG TAB.CHEW GT SCH (08:17)
[2019-02-26] MEDS: clonazePAM 1 MG TABLET PO SCH (08:17)
[2019-02-26] MEDS: HALOPERIDOL LACTATE 10 MG/5 ML UDC PO SCH (08:17)
[2019-02-26] MEDS: LEVETIRACETAM (250 MG) 250 MG TABLET PO SCH (08:17)
[2019-02-26] MEDS: DONEPEZIL 5 MG TABLET PO SCH (08:17)
[2019-02-26] MEDS: LACTOBACILLUS RHAMNOSUS GG 1 EACH CAP.SPRINK PO SCH ×2 (08:17→16:12)
[2019-02-26] MEDS: ENSURE ENLIVE 237 ML LIQUID (VANILLA) PO SCH ×3 (08:23→17:20)
[2019-02-26] MEDS: Potassium Chloride 20 MEQ in IV NS 0.9% 1,000 ML IV PRN (09:06)
[2019-02-26] MEDS ORDERED: QUETIAPINE FUMARATE 25 MG TABLET PO PRN (10:00)
[2019-02-26] MEDS ORDERED: FUROSEMIDE 20 MG/2 ML VIAL IV ONE (15:00)
[2019-02-26 16:00] VITALS: BP 112/62
--- NOTE | 2019-02-26 19:06 | NUR ---
RN CLOSING NOTES PT AWAKE AND RESTING IN BED. PT CONFUSED. NO APPARENT S/S OF PAIN, DISTRESS OR SOB DURING SHIFT. PT HAS BILATERAL SOFT WRIST RESTRAINTS, PER PATIENT PULLING AT LINES AND REMOVING IVS. PT HAS KEN #20 IV AND RIGHT UPPER ARM 18 MIDLINE. SAFETY PRECAUTIONS IN PLACE, BED IN LOWEST LOCKED POSITION, X2 SIDE RAILS UP AND CALL LIGHT WITHIN REACH. WILL ENDORSE TO STEAM TRAIN DRIVER NURSE FOR CONTINUITY OF CARE.
--- NOTE | 2019-02-26 19:07 | NUR ---
MS RN OPENING NOTES Received patient alert with confusion noted, patient just staring at the nurse, no verbal interaction noted. On O2 via NC, no SOB/respiratory distress noted. With bilateral soft wrist restraint noted for patient's behavior disrupting medical interventions. With MALICK midline #18 SL, with KEN G#20, SL. BP noted slightly elevated. Facial grimacing noted. Administered [place] at this time. On fall precaution. Will continue to monitor accordingly.
[2019-02-26] MEDS: GENTAMICIN IV SCH (19:46)
[2019-02-26] MEDS: NS 0.9% IV SCH (19:46)
[2019-02-26] MEDS: HYDROCODONE/APAP 5/325MG 1 EACH TABLET PO PRN (19:46)
[2019-02-26 20:00] VITALS: BP 152/73
[2019-02-26] MEDS: DOCUSATE SODIUM 100 MG CAPSULE PO SCH (21:55)
[2019-02-26] MEDS: ATORVASTATIN 10 MG TABLET PO SCH (21:55)
[2019-02-27 06:24] LABS: BASOPHILS % (AUTO) 0.4 % (0.0-2.0); EOSINOPHILS % (AUTO) 5.1 % (0.0-6.0); HEMATOCRIT 32 % (33-45); HEMOGLOBIN 10.9 g/dL (11.5-14.8); LYMPHOCYTES # (AUTO) 1.9 /CMM (0.8-4.8); MEAN CORPUSCULAR HGB CONC 34 g/dl (31.0-36.0); MEAN CORPUSCULAR VOLUME 95 fL (82-100); MONOCYTES # (AUTO) 0.6 /CMM (0.1-1.30); MONOCYTES % (AUTO) 7.5 % (2.0-12.0); NEUTROPHILS # (AUTO) 4.8 /CMM (1.8-8.9); PLATELET COUNT (AUTO) 200 /CMM (150-450); RED BLOOD CELL COUNT(AUTO) 3.41 MIL/uL (4.0-5.2); WHITE BLOOD COUNT (AUTO) 7.7 K/uL (4.3-11.0)
[2019-02-27 06:53] LABS: CALCIUM, SERUM 9.1 mg/dL (8.5-10.1); CREATININE 0.8 mg/dL (0.6-1.3); MAGNESIUM 2.3 mg/dL (1.8-2.4); PHOSPHORUS 4.2 mg/dL (2.5-4.9); POTASSIUM 3.8 mmol/L (3.5-5.1)
--- NOTE | 2019-02-27 07:15 | NUR ---
MS RN CLOSING NOTES Patient awake on bed, on O2 inhalation via NC, no SOB/respiratory distress noted. On enhanced contact precautions due to ESBL urine. No new unusualities noted. Visited by last night with information patient is hard of hearing and seeing. On aspiration precaution, no episode of aspiration noted, with occasional productive cough unable to expectorate. On fall and seizure precautions. Endorsed to the next shift.
--- NOTE | 2019-02-27 07:45 | NUR ---
M/S RN OPENING NOTES RECEIVED PATIENT ON BED IN SUPINE POSITION, RESPONSIVE WITH OPENING OF EYE TO VERBAL AND TACTILE STIMULI DUE TO IMPAIRMENT IN VISION AND HEARING, BASELINE BEHAVIOR PER ENDORSEMENT NURSE WITH MOANING SOUNDS NORMAL RESPONSE. PATIENT IS BED REST WITH SKIN WARM TO TOUCH AND DRY. RESPIRATION WITH NO PRESENCE OF ACUTE RESPIRATORY DISTRESS, ON OXYGEN AT 2LPM VIA NASAL CANNULA WITH HEAD OF BED ELEVATED. ABDOMEN SOFT AND NON DISTENDED WITH ACTIVE BOWEL SOUNDS, ON DIAPER. PATIENT HAS NO S/SX OF PAIN AND DISCOMFORT. IV SITE AT LEFT UPPER ARM AND MIDLINE RIGHT UPPER ARM WITH NO S/SX OF INFILTRATION. PLACED BED ON MISHA POSITION, PADDED DUE TO SEIZURE DISORDER AND SIDE RAILS UP FOR SAFETY. PLACED CALL LIGHT WITHIN REACH, PATIENT CLOSE TO NURSING STATION. WILL CONTINUE TO EVALUATE CARE.
[2019-02-27 08:00] VITALS: BP 106/65
[2019-02-27] MEDS: PANTOPRAZOLE 40 MG TABLET.DR PO SCH (08:11)
[2019-02-27] MEDS: HALOPERIDOL LACTATE 10 MG/5 ML UDC PO SCH (08:11)
[2019-02-27] MEDS: LEVETIRACETAM (250 MG) 250 MG TABLET PO SCH (08:11)
[2019-02-27] MEDS: ENSURE ENLIVE 237 ML LIQUID (VANILLA) PO SCH ×3 (08:11→17:28)
[2019-02-27] MEDS: LEVOTHYROXINE SODIUM 50 MCG TABLET PO SCH (08:11)
[2019-02-27] MEDS: DONEPEZIL 5 MG TABLET PO SCH (08:11)
[2019-02-27] MEDS: LACTOBACILLUS RHAMNOSUS GG 1 EACH CAP.SPRINK PO SCH ×2 (08:11→16:55)
[2019-02-27] MEDS: ASPIRIN 81 MG TAB.CHEW GT SCH (08:11)
[2019-02-27] MEDS: clonazePAM 1 MG TABLET PO SCH (08:11)
[2019-02-27] MEDS ORDERED: IV D5W 1,000 ML IV ONE (12:00)
--- NOTE | 2019-02-27 14:50 | NUR ---
M/S RN NOTES PATIENT RESTRAINTS RELEASE FOR 10 MINUTES AND OBSERVED BEHAVIOR, PATIENT CONTINUE TO HAVE EPISODES OF TAKING OF IV SITE AND GRASPING ANOTHER ARM. ROM PROVIDED AND SAFETY ENVIRONMENT. PLACED ON RESTRAINT AFTER 15 MINUTES. WILL CONTINUE TO MONITOR USE OF RESTRAINT.
[2019-02-27 16:00] VITALS: BP 112/63
--- NOTE | 2019-02-27 18:53 | NUR ---
M/S RN CLOSING NOTES PATIENT ON LEFT SIDE LYING POSITION, RESPONSIVE WITH OPENING OF EYE TO VERBAL AND TACTILE STIMULI BASELINE BEHAVIOR, MAKING NOISE FOR COMMUNICATION. RESPIRATION EVEN AND NON LABORED WITH NO ACUTE RESPIRATORY DISTRESS, ON OXYGEN AT 2LPM VIA NASAL CANNULA. ABDOMEN SOFT AND NON DISTENDED WITH ACTIVE BOWEL SOUNDS. PATIENT HAS NO S/SX OF PAIN AND DISCOMFORT. SKIN WARM TO TOUCH AND DRY, BOTH HEELS AND ELBOW PLACED ON OFF LOAD. IV SITE AT LEFT UPPER ARM AND MIDLINE RIGHT UPPER ARM WITH NO S/SX OF INFILTRATION, PATENT IN FLUSHING. BED ON LOCKED, PADDED DUE TO SEIZURE DISORDER AND SIDE RAILS UP FOR SAFETY. PLACED CALL LIGHT WITHIN REACH, PATIENT CLOSE TO NURSING STATION. POSSIBLE DC TOMORROW. ENDORSED TO NEXT SHIFT.
--- NOTE | 2019-02-27 19:10 | NUR ---
MS RN OPENING NOTES Received patient awake, on semi-Boothe's position on bed. With O2 inhalation via NC @ 2LPM, saturating well. No SOB/respiratory distress noted. With MALICK midline G#18; KEN G#20 with D5W infusing well @ 75ml/hr as order. On fall and seizure precaution. No discomfort noted at this time. Call light within easy reach. Will continue to monitor accordingly.
[2019-02-27] MEDS: NS 0.9% IV SCH (19:34)
[2019-02-27] MEDS: GENTAMICIN IV SCH (19:34)
[2019-02-27 20:00] VITALS: BP 153/76
[2019-02-27 20:27] VITALS: BP 153/76
--- NOTE | 2019-02-27 21:00 | NUR ---
MS RN NOTES Patient on monitoring for use of soft wrist restraint. No complications noted at this time. Patient still noted with episodes of pulling off IV lines and tubings interrupting medical care. Will continue to monitor accordingly.
[2019-02-27] MEDS: ATORVASTATIN 10 MG TABLET PO SCH (21:31)
[2019-02-27] MEDS: DOCUSATE SODIUM 100 MG CAPSULE PO SCH (21:31)
[2019-02-27] MEDS: HYDROCODONE/APAP 5/325MG 1 EACH TABLET PO PRN (22:28)
--- NOTE | 2019-02-28 06:55 | NUR ---
MS RN NOTES Patient noted asleep at this time. Still with bilateral soft wrist restraints. On O2 inhalation via NC @ 2LPM, saturating well no SOB/respiratory distress noted. All nursing needs attended. Patient able to take meds crushed and liquid in nectar thick. On aspiration precation. On fall and seizure precaution. No new unusualities noted. Call light within easy reach. Endorsed to the next shift.
[2019-02-28 08:00] VITALS: BP 104/62
--- NOTE | 2019-02-28 08:13 | NUR ---
MS RN NOTES PT RECEIVED RESTING IN BED. AWAKE BUT NOT INTERACTIVE. NO SOB OR ACUTE DISTRESS NOTED. PT BREATHING UNLABORED, ON 2L NC. PT SAMI SPEAKING. PT ON ACTIVE ORDERS WITH BILATERAL SOFT WRIST RESTRAINTS. PT BED LOWERED, LOCKED, AND CALL LIGHT WITHIN REACH. WILL CONTINUE TO MONITOR FOR ANY CHANGES.
[2019-02-28 08:37] LABS: CALCIUM, SERUM 9.2 mg/dL (8.5-10.1); CREATININE 0.7 mg/dL (0.6-1.3); MAGNESIUM 2.1 mg/dL (1.8-2.4); PHOSPHORUS 3.7 mg/dL (2.5-4.9); POTASSIUM 3.7 mmol/L (3.5-5.1)
[2019-02-28] MEDS: HALOPERIDOL LACTATE 10 MG/5 ML UDC PO SCH (08:39)
[2019-02-28] MEDS: LACTOBACILLUS RHAMNOSUS GG 1 EACH CAP.SPRINK PO SCH ×2 (08:40→17:44)
[2019-02-28] MEDS: DONEPEZIL 5 MG TABLET PO SCH (08:40)
[2019-02-28] MEDS: LEVOTHYROXINE SODIUM 50 MCG TABLET PO SCH (08:40)
[2019-02-28] MEDS: clonazePAM 1 MG TABLET PO SCH (08:40)
[2019-02-28] MEDS: LEVETIRACETAM (250 MG) 250 MG TABLET PO SCH (08:40)
[2019-02-28] MEDS: PANTOPRAZOLE 40 MG TABLET.DR PO SCH (08:41)
[2019-02-28] MEDS: ASPIRIN 81 MG TAB.CHEW GT SCH (08:41)
[2019-02-28] MEDS: ENSURE ENLIVE 237 ML LIQUID (VANILLA) PO SCH ×3 (08:42→17:45)
[2019-02-28 08:47] LABS: BASOPHILS % (AUTO) 0.6 % (0.0-2.0); EOSINOPHILS % (AUTO) 5.5 % (0.0-6.0); HEMATOCRIT 31 % (33-45); HEMOGLOBIN 10.4 g/dL (11.5-14.8); LYMPHOCYTES # (AUTO) 1.8 /CMM (0.8-4.8); LYMPHOCYTES % (AUTO) 29.7 % (20.0-44.0); MEAN CORPUSCULAR HGB CONC 34 g/dl (31.0-36.0); MEAN CORPUSCULAR VOLUME 95 fL (82-100); MONOCYTES # (AUTO) 0.4 /CMM (0.1-1.30); NEUTROPHILS # (AUTO) 3.6 /CMM (1.8-8.9); NEUTROPHILS % (AUTO) 58.2 % (43.0-81.0); PLATELET COUNT (AUTO) 234 /CMM (150-450); RED BLOOD CELL COUNT(AUTO) 3.25 MIL/uL (4.0-5.2); WHITE BLOOD COUNT (AUTO) 6.2 K/uL (4.3-11.0)
[2019-02-28] MEDS ORDERED: LACT1CAP72 PO (10:29)
[2019-02-28] MEDS ORDERED: LACT-246 PO (10:29)
[2019-02-28] MEDS ORDERED: GENT80PI6 IV (10:29)
[2019-02-28 16:00] VITALS: BP 137/66
--- NOTE | 2019-02-28 19:20 | NUR ---
RN NOTES RECEIVED PT AWAKE, ALERT AND ORIENTED X1 AND RESTING IN BED. PT EYES ARE OPEN AND RESPONSIVE TO VERBAL STIMULI. PT COMMUNICATED THROUGH VERBAL MOANING. PT ON BILATERAL SOFT WRIST RESTRAINTS. PT ON OXYGEN 2 L NC. PT ON SEIZURE PRECAUTIONS, BED RAILS PADDED. PT HAS UNLABORED BREATHING AND NO SOB OR ACUTE DISTRESS NOTED. PTS BED IS LOCKED, LOWERED, AND CALL LIGHT WITHIN REACH. PATIENT FOR DISCHARGE, AWAITING FOR PRECIPITATOR SUPERVISOR, WILL MONITOR ACCORDINGLY.
--- NOTE | 2019-02-28 19:42 | NUR ---
MS RN CLOSING NOTES PT AWAKE, ALERT AND ORIENTED X1 AND RESTING IN BED. PT EYES ARE OPEN AND RESPONSIVE TO VERBAL STIMULI. PT COMMUNICATED THROUGH VERBAL MOANING. PT ON BILATERAL SOFT WRIST RESTRAINTS. PT ON OXYGEN 2 L NC. PT ON SEIZURE PRECAUTIONS, BED RAILS PADDED. PT HAS UNLABORED BREATHING AND NO SOB OR ACUTE DISTRESS NOTED. PTS BED IS LOCKED, LOWERED, AND CALL LIGHT WITHIN REACH. ALL NEEDS MET. MEDICATIONS GIVEN. ENDORSED CARE TO PM SHIFT.
[2019-02-28] MEDS: GENTAMICIN IV SCH (20:29)
[2019-02-28] MEDS: NS 0.9% IV SCH (20:29)
--- NOTE | 2019-02-28 21:05 | NUR ---
RN NOTES PATIENT, DISCHARGED TO [facility], PICKED UP AND TRANSPORTED, OUT IN THE UNIT AT 2105.
== END 2019-02-28 21:05 | DRG 720 ==
LOC: ER 17:33 → TELE 21:04 → MED 02-22 08:40
PROVIDERS: ADMIT Nurse Practitioner Acute Care; ATTEND Nurse Practitioner Acute Care
PROC: 05H533Z Insertion of Infusion Device into Right Subclavian Vein, Percutaneous Approach (ICD-10-PCS; principal; 2019-02-26)
PROC: B546ZZA Ultrasonography of Right Subclavian Vein, Guidance (ICD-10-PCS; principal; 2019-02-26)
DX: A41.9 Sepsis, unspecified organism (principal); G93.41 Metabolic encephalopathy; E87.2 Acidosis; E87.0 Hyperosmolality and hypernatremia; E44.1 Mild protein-calorie malnutrition; G30.9 Alzheimer's disease, unspecified; F02.80 Dementia in other diseases classified elsewhere, unspecified severity, without behavioral disturbance, psychotic disturbance, mood disturbance, and anxiety; N39.0 Urinary tract infection, site not specified; K21.9 Gastro-esophageal reflux disease without esophagitis; E03.9 Hypothyroidism, unspecified; E78.5 Hyperlipidemia, unspecified; E87.6 Hypokalemia; I10 Essential (primary) hypertension; I25.10 Atherosclerotic heart disease of native coronary artery without angina pectoris; Z79.82 Long term (current) use of aspirin; Z79.899 Other long term (current) drug therapy; R62.7 Adult failure to thrive; F01.50 Vascular dementia, unspecified severity, without behavioral disturbance, psychotic disturbance, mood disturbance, and anxiety; B96.89 Other specified bacterial agents as the cause of diseases classified elsewhere; G40.409 Other generalized epilepsy and epileptic syndromes, not intractable, without status epilepticus
CPT/HCPCS: 36415; 36569; 70450-TC; 71045-TC; 80048-TC; 80061-TC; 80076-TC; 80170-TC; 80177; 80202-TC; 81000-TC; 83605-TC; 83735-TC; 84100-TC; 84484-TC; 85025-TC; 85730-TC; 87040-TC; 87081-TC; 87086-TC; 87186-TC; 92521; 92526; 94799-TC; A4216; G0378; J0696; J1580; J1630; J1940; J2060; J3370; J3480; J3490; J7030; J7060; J7070

== ENCOUNTER 2019-03-06 02:33 | Inpatient (IN) | payer OTHER ==
[~2019-03-06] VITALS: Ht 157.5 cm; Wt 35.8 kg
[~2019-03-06 02:33] MED LIST changes: -ACET-2605 GT; +ACET-73 PO; -ACET-868 GT; +ACET650T10 PO; -ATOR20TA GT; +ATOR20TA PO; +CLON1TAB PO; -CRAN3875 GT; +CRAN3875 PO; +CRAN425C6 PO; -DONE5TAB7 GT; +DONE5TAB7 PO; +GENT80PI6 IV; +HALO2TAB PO; +LACT-246 PO; +LACT1CAP72 PO; -LEVE500T9 GT; -LEVO50TA8 GT; +LEVO50TA8 PO; -MAGN2400 GT; -VITA1TAB20 GT
--- NOTE | 2019-03-06 02:40 | NUR ---
PT BIBRA FROM [facility] C/O FEVER AND POSSIBLE SEPSIS. PT IS NONVERBAL, WARM TO TOUCH, OPENS EYES TO PAINFUL STIMULI. NOTED TACHYCARDIA, MD AWARE. PT O2 SAT ROOM AIR 88%, PER VERBAL MD ORDER, PT PLACED ON 100% NON REBREATHER, O2 SAT 97%. NOTED CONTRACTED LOWER EXTREMITIES. PT PLACED IN GOWN AND ON CONTINUOUS DATABASE TESTER, WILL CONTINUE TO MONITOR.
--- NOTE | 2019-03-06 02:40 | NUR ---
PT ARRIVED WITH LAC 20G AND RIGHT UPPER ARM MID LINE. LABS DRAWN FROM SITE. TRACER BULLET SECTION SUPERVISOR AT BEDSIDE FOR COLLECTION
--- NOTE | 2019-03-06 02:45 | NUR ---
URINE COLLECTED AND SENT TO LAB
[2019-03-06] MEDS ORDERED: MEROPENEM 1 G VIAL IV ONE (02:54)
[2019-03-06] MEDS ORDERED: ACETAMINOPHEN 650 MG/SUPP.RECT RC ONE ×2 (02:55→03:00)
[2019-03-06] MEDS ORDERED: MEROPENEM 1 G in IV NS 0.9% 100 ML IV ONE (03:00)
[2019-03-06] MEDS ORDERED: IV NS 0.9% 1,000 ML BAG IV ONE ×2 (03:00)
[2019-03-06 03:08] LABS: APPEARANCE,URINE Cloudy (CLEAR); BASOPHILS # (AUTO) 0.1 /CMM (0.0-0.2); BASOPHILS % (AUTO) 0.4 % (0.0-2.0); BILIRUBIN,URINE Negative (NEGATIVE); BLOOD, URINE Negative Ery/uL (NEGATIVE); COLOR,URINE Yellow (YELLOW); HEMATOCRIT 41 % (33-45); HEMOGLOBIN 13.2 g/dL (11.5-14.8); KETONES,URINE Negative (NEGATIVE); LEUKOCYTE ESTERASE ,URINE Negative (NEGATIVE); LYMPHOCYTES # (AUTO) 1.2 /CMM (0.8-4.8); LYMPHOCYTES % (AUTO) 7.8 % (20.0-44.0); MEAN CORPUSCULAR HGB CONC 33 g/dl (31.0-36.0); MEAN CORPUSCULAR VOLUME 95 fL (82-100); MONOCYTES # (AUTO) 0.6 /CMM (0.1-1.30); MONOCYTES % (AUTO) 3.9 % (2.0-12.0); NEUTROPHILS # (AUTO) 13.1 /CMM (1.8-8.9); NEUTROPHILS % (AUTO) 87.9 % (43.0-81.0); NITRITE, URINE Negative (NEGATIVE); PLATELET COUNT (AUTO) 465 /CMM (150-450); PROTEIN,URINE 100 mg/dl (NEGATIVE); RED BLOOD CELL COUNT(AUTO) 4.25 MIL/uL (4.0-5.2); UGLUCOSE Negative (NEGATIVE); UROBILINOGEN,URINE 0.2 EU/dL (0.2); WHITE BLOOD COUNT (AUTO) 14.9 K/uL (4.3-11.0)
--- NOTE | 2019-03-06 03:15 | NUR ---
RADIOLOGY AT BEDSIDE FOR CXR
[2019-03-06 03:17] LABS: ALANINE AMINOTRANSFERASE 78 U/L (12-78); ALBUMIN 3.1 g/dL (3.4-5.0); ALKALINE PHOSPHATASE 122 U/L (46-116); ASPARTATE AMINOTRANSFERASE 63 U/L (15-37); B-TYPE NATRIURETIC PEPTIDE 338 PG/ML (0-125); BILIRUBIN,DIRECT 0.1 mg/dL (0.0-0.2); BILIRUBIN,TOTAL 0.5 mg/dL (0.2-1.0); CALCIUM, SERUM 9.6 mg/dL (8.5-10.1); CARBON DIOXIDE 29 mmol/L (21-32); CHLORIDE 119 mmol/L (98-107); GLUCOSE 196 mg/dL (74-106); POTASSIUM 3.9 mmol/L (3.5-5.1); TOTAL PROTEIN, SERUM 8.5 g/dL (6.4-8.2)
--- NOTE | 2019-03-06 03:18 | NUR ---
RT AT BEDSIDE
[2019-03-06 03:21] LABS: SODIUM SERUM 160 mmol/L (136-145); UREA NITROGEN, BLOOD 94 mg/dL (7-18)
[2019-03-06 03:29] LABS: ABG BASE EXCESS -1.1 mmol/L; ABG OXYGEN SATURATION 98.8 % (92.0-98.5); ABG PCO2 33.5 mmHg (35.0-45.0); ABG PH 7.442 (7.350-7.450); ABG PO2 202.1 mmHg (75.0-100.0); AaDO2 477.4 mmHg; COHb 0.1 % (0.5-1.5); MetHb 0.5 % (0.0-1.5); O2Hb 98.2 % (94.0-97.0); SITE, ABG Right Radial; VENT MODE, BG 100% NRB
[2019-03-06 03:35] LABS: BACTERIA,URINE Moderate /HPF (None Seen); SQUAMOUS EPITHELIAL CELL,UR Few /HPF (None Seen)
--- NOTE | 2019-03-06 03:36 | NUR ---
SODIUM 160, BUN 94, LACTIC ACID 2.1. MD AWARE.
--- NOTE | 2019-03-06 03:37 | NUR ---
PER MD, PT TAKEN OFF NONREBREATHER AND PLACED ON 6L NC. RT AT BEDSIDE, WILL CONTINUE TO MONITOR
--- NOTE | 2019-03-06 05:27 | NUR ---
GAVE REPORT TO GIOVANNI GONZÁLES FOR HU
[2019-03-06] MEDS ORDERED: MAGNESIUM HYDROXIDE 30 ML UDC PO PRN (06:00)
[2019-03-06] MEDS ORDERED: HYDROCODONE/APAP 5/325MG 1 EACH TABLET PO PRN (06:00)
[2019-03-06] MEDS ORDERED: IV NS 0.9% 1,000 ML IV PRN ×2 (06:00→10:29)
[2019-03-06] MEDS ORDERED: MAG HYDROX/AL HYDROX/SIMETH 30 ML UDC PO PRN (06:00)
[2019-03-06] MEDS ORDERED: Z GUARD REMEDY 2 OZ OINT TP PRN (06:00)
[2019-03-06] MEDS ORDERED: ZOLPIDEM TARTRATE 5 MG TABLET PO PRN (06:00)
[2019-03-06] MEDS ORDERED: ACETAMINOPHEN 325 MG TABLET PO PRN (06:00)
[2019-03-06] MEDS ORDERED: ONDANSETRON HCL/PF 4 MG/2 ML VIAL IVP PRN (06:00)
--- NOTE | 2019-03-06 06:07 | NUR ---
TRANSFERRED PT PER ACLS PROTOCOL
[2019-03-06 06:20] VITALS: BP 110/74
--- NOTE | 2019-03-06 06:22 | NUR ---
OREMAN NOTES PATIENT ARRIVED AT 0615 VIA GURNEY. VITAL SIGNS TAKEN. PATIENT IS NONVERBAL. NO SIGNS OF RESPIRATORY DISTRESS. NO SHORTNESS OF BREATH NOTED. NO SIGNS OF PAIN OR DISCOMFORT AT THIS TIME. PATIENT WEIGHT 77.1. CURRENT TELE READING IS 98 SR AT THIS TIME. PATIENT HAS LOWER EXTREMITY CONTRACTURE OBSERVED. WILL ENDORSE TO ONCOMING AM SHIFT TO CONTINUE THE ADMISSION PROCESS.
--- NOTE | 2019-03-06 06:49 | NUR ---
RN NOTES SKIN ASSESSMENT AND PHOTOS NOT DONE AT THIS TIME DUE TO CHANGE OF SHIFT. WILL ENDORSE TO ONCOMING AM RN.
[2019-03-06] MEDS ORDERED: SACC250C PO (07:30)
[2019-03-06] MEDS ORDERED: CEFT1VIA15 IV (07:34)
--- NOTE | 2019-03-06 07:43 | NUR ---
CATTLE TESTER OPENING NOTES RECEIVED PT RESTING IN BED, ASLEEP, INTERMITTENTLY MOANING AND SOUNDS CONGESTED. ON OXYGEN 6L VIA NC, WITH NO ACUTE RESPIRATORY DISTRESS NOTED. PT DENIES PAIN OR ANY DISCOMFORT AT THIS TIME. ON TELEMONITORING NSR WITH HR OF 100. PIV TO LAC 20G AND MALICK MIDLINE, BOTH FLUSHED WITH NS, INTACT AND OPERATIONAL. FC WITH YELLOW URINE IN THE BAG NOTED. HOB ELEVATED. PT'S BED IN LOWEST, LOCKED POSITION WITH SRX2. CALL LIGHT KEPT WITHIN REACH. WILL CONTINUE PLAN OF CARE.
[2019-03-06 08:00] VITALS: BP 120/76
--- NOTE | 2019-03-06 08:45 | NUR ---
ZOO DIRECTOR NOTES CALLED AND SPOKE TO CUSTOMER EXPERIENCE PROFESSIONAL CC REGARDING PT'S DIET. CUSTOMER EXPERIENCE PROFESSIONAL ORDERED CARDIAC DIET AND SWALLOW EVAL FOR NOW. AND TO KEEP PT NPO IF NOT ABLE TO EAT.
--- NOTE | 2019-03-06 09:00 | NUR ---
BISQUE FINISHER NOTES PER [place] FARMER/MANAV, PT UNABLE TO EAT. PT NOT COOPERATING AT THIS MOMENT. RN CHECKED, PT IS DIFFICULT TO AROUSE. NPO CC AWARE, KEEP PT NPO AND WAIT FOR SWALLOW EVAL. WILL CONTINUE TO MONITOR.
[2019-03-06] MEDS: MEROPENEM 500 MG in IV NS 0.9% 100 ML IV SCH ×2 (10:55→21:14)
--- NOTE | 2019-03-06 11:59 | NUR ---
INDUSTRIAL ACCOUNTANT NOTE REPORT GIVEN TO ELIECER LUNA FOR HU.
[2019-03-06 12:47] LABS: CALCIUM, SERUM 9.1 mg/dL (8.5-10.1); CREATININE 1.1 mg/dL (0.6-1.3); POTASSIUM 3.4 mmol/L (3.5-5.1)
[2019-03-06] MEDS ORDERED: MEROPENEM 1 G in IV NS 0.9% 100 ML IV SCH (13:00)
--- NOTE | 2019-03-06 13:53 | NUR ---
WELLNESS EDUCATOR NOTES RECEIVED CALL FROM LAB REGARDING SODIUM OF 163 AND CHLORIDE OF 126. PRINTED CIRCUIT BOARD PCB DRAFTSMAN CC MADE AWARE, NO NEW ORDERS NOTED AT THIS MOMENT. WILL CONTINUE TO MONITOR.
[2019-03-06] MEDS: POTASSIUM CL. PREMIX PERIPHER. 50 ML IV SCH ×2 (15:10→16:13)
[2019-03-06 16:00] VITALS: BP 106/74
[2019-03-06 16:43] VITALS: BP 106/74
[2019-03-06 17:24] LABS: ABG BASE EXCESS 1.4 mmol/L; ABG OXYGEN SATURATION 95.9 % (92.0-98.5); ABG PCO2 34.4 mmHg (35.0-45.0); ABG PH 7.474 (7.350-7.450); ABG PO2 82.3 mmHg (75.0-100.0); AaDO2 163.3 mmHg; COHb 0.3 % (0.5-1.5); MetHb 0.6 % (0.0-1.5); SITE, ABG Right Radial; VENT MODE, BG 5L NC
[2019-03-06 18:40] LABS: APPEARANCE,URINE CLOUDY (CLEAR); BILIRUBIN,URINE NEGATIVE (NEGATIVE); BLOOD, URINE 1+ Ery/uL (NEGATIVE); COLOR,URINE YELLOW (YELLOW); KETONES,URINE NEGATIVE (NEGATIVE); LEUKOCYTE ESTERASE ,URINE NEGATIVE (NEGATIVE); NITRITE, URINE NEGATIVE (NEGATIVE); PROTEIN,URINE 1+ mg/dl (NEGATIVE); UGLUCOSE NEGATIVE (NEGATIVE); UROBILINOGEN,URINE 0.2 EU/dL (0.2)
[2019-03-06 18:49] LABS: CALCIUM, SERUM 9.7 mg/dL (8.5-10.1); POTASSIUM 4.1 mmol/L (3.5-5.1)
[2019-03-06 18:56] LABS: CREATININE, URINE 85.9 MG/DL (30.0-125.0); URINE TOTAL PROTEIN 98.8 mg/dL (0-11.9)
[2019-03-06 18:58] LABS: BACTERIA,URINE 4+ /HPF (None Seen); SQUAMOUS EPITHELIAL CELL,UR Many /HPF (None Seen)
--- NOTE | 2019-03-06 19:06 | NUR ---
PURCHASING INTERN NOTES RECEIVED A CALL FROM LAB REGARDING NA OF 164 AND CL OF 125. APPRENTICE INSTRUMENT TECHNICIAN CC MADE AWARE. NO NEW ORDERS NOTED AT THIS TIME. ENDORSED TO NEXT SHIFT.
--- NOTE | 2019-03-06 19:15 | NUR ---
TRADITIONAL CHINESE HERBALIST NOTE RECEIVED PT IN STABLE CONDITION, NONVERBAL. NO SIGNS OF SOB OR DISTRESS, NO INDICATIONS OF PAIN. TELE MONITOR SINUS TACH 104. FC IN PLACE WITH ADEQUATE URINE DRAINING. ALL CURRENT NEEDS MET. ISOLATION PRECAUTIONS IN PLACE. BED LOW, LOCKED UPPER RAILS UP, AND CALL LIGHT WITHIN REACH. WILL CONT. TO MONITOR.
--- NOTE | 2019-03-06 19:23 | NUR ---
DREDGE OPERATOR CLOSING NOTES PT REMAINS RESTING IN BED, ASLEEP. ON OXYGEN 5L VIA NC, WITH NO ACUTE RESPIRATORY DISTRESS NOTED. PT DENIES PAIN OR ANY DISCOMFORT AT THIS TIME. ON TELEMONITORING SINUS TACH WITH HR OF 104. PIV TO LAC 20G AND MALICK MIDLINE, BOTH FLUSHED WITH NS, INTACT AND OPERATIONAL. FC WITH YELLOW URINE IN THE BAG NOTED, OUTPUT OF 650ML. HOB ELEVATED. ALL NEEDS AND CARE PROVIDED. PT'S BED IN LOWEST, LOCKED POSITION WITH SRX2. CALL LIGHT KEPT WITHIN REACH. ENDORSED TO BRAZING MACHINE OPERATOR AUTOMATIC NURSE FOR HU.
[2019-03-06 19:24] LABS: EOSINOPHIL,URINE None Seen
[2019-03-06 20:00] VITALS: BP 108/67
[2019-03-06] MEDS ORDERED: IV 1/2NS 1000 ML 1,000 ML IV ONE (20:00)
[2019-03-07] VITALS: BP 112/56
[2019-03-07 04:00] VITALS: BP 128/76
[2019-03-07 06:28] LABS: EOSINOPHILS % (AUTO) 0.2 % (0.0-6.0); HEMATOCRIT 32 % (33-45); HEMOGLOBIN 10.4 g/dL (11.5-14.8); LYMPHOCYTES # (AUTO) 1.6 /CMM (0.8-4.8); LYMPHOCYTES % (AUTO) 13.2 % (20.0-44.0); MEAN CORPUSCULAR HGB CONC 33 g/dl (31.0-36.0); MEAN CORPUSCULAR VOLUME 95 fL (82-100); MONOCYTES # (AUTO) 0.6 /CMM (0.1-1.30); MONOCYTES % (AUTO) 4.7 % (2.0-12.0); NEUTROPHILS # (AUTO) 10.1 /CMM (1.8-8.9); NEUTROPHILS % (AUTO) 81.9 % (43.0-81.0); PLATELET COUNT (AUTO) 307 /CMM (150-450); RED BLOOD CELL COUNT(AUTO) 3.35 MIL/uL (4.0-5.2); WHITE BLOOD COUNT (AUTO) 12.4 K/uL (4.3-11.0)
[2019-03-07 06:39] LABS: ALBUMIN 2.3 g/dL (3.4-5.0); BILIRUBIN,TOTAL 0.4 mg/dL (0.2-1.0); CALCIUM, SERUM 9.2 mg/dL (8.5-10.1); CREATININE 0.8 mg/dL (0.6-1.3); MAGNESIUM 2.2 mg/dL (1.8-2.4); PHOSPHORUS 2.3 mg/dL (2.5-4.9); POTASSIUM 3.4 mmol/L (3.5-5.1); TOTAL PROTEIN, SERUM 6.5 g/dL (6.4-8.2)
--- NOTE | 2019-03-07 06:46 | NUR ---
SCRUM PRODUCT OWNER CLOSING NOTES PT IN BED RESTING. PT ON X2 4L VIA NC. RESPIRATIONS EVEN AND UNLABORED WITH NO S/S OF ACUTE DISTRESS OR SOB NOTED THROUGHOUT SHIFT. PT WITH NO S/S OF PAIN OR DISCOMFORT AT THIS TIME. PT ON TELEMONITORING SINUS TACH WITH HR OF 106. IV TO LAC 20G AND MALICK MIDLINE BOTH PATENT AND INTACT WITH NS@100 ML/HR RUNNING ON MALICK MIDLINE. FC INTACT WITH YELLOW URINE WITH OUTPUT OF 600ML. HOB ELEVATED. PT KEPT CLEAN, DRY, AND COMFORTABLE. SAFETY MEASURES IN PLACE WITH BED IN LOWEST, LOCKED POSITION WITH SIDE RAILS UP X3. CALL LIGHT WITHIN REACH. WILL ENDORSE TO ONCOMING NURSE FOR HU.
--- NOTE | 2019-03-07 07:49 | NUR ---
RUG MEASURER OPENING NOTES RECEIVED PT LAYING IN BED, SLEEPING COMFORTABLY. PT IS AROUSABLE, HOWEVER NONVERBAL. RESPIRATIONS ARE EVEN AN UNLABORED, NOT IN ANY ACUTE DISTRESS NOTED. NO FACIAL GRIMACING OR MOANING NOTED. MALICK MIDLINE INTACT, NO INFILTRATION NOTED. DRESSING KEPT CLEAN AND DRY. CALL LIGHT IS LEFT WITHIN REACH. WILL REPOSITION PER PROTOCOL. WILL CONTINUE TO MONITOR PT THROUGHOUT SHIFT FOR CONTINUITY OF CARE.
[2019-03-07 08:00] VITALS: BP 114/54
[2019-03-07] MEDS ORDERED: POTASSIUM CHLORIDE 20 MEQ POWDER PACKET PO SCH (09:30)
[2019-03-07] MEDS: MEROPENEM 500 MG in IV NS 0.9% 100 ML IV SCH (10:01)
[2019-03-07] MEDS: IV D5W 1,000 ML IV PRN (13:43)
[2019-03-07] MEDS: POTASSIUM CL. PREMIX PERIPHER. 50 ML IV SCH ×2 (13:44→14:00)
--- NOTE | 2019-03-07 14:08 | NUR ---
MS RN NOTES-- NOTIFIED GURMEET MOONEY RE: POTASSIUM POWDER ORDER PT IS NPO AND TO CHANGE IT TO POTASSIUM IV. NOTIFIED MACARIO IN PHARMACY.
[2019-03-07] MEDS: POTASSIUM PHOSPHATE MM 7.5 MMOL in IV D5W 100 ML IV SCH ×2 (14:46→18:33)
[2019-03-07 16:00] VITALS: BP 137/83
--- NOTE | 2019-03-07 16:06 | NUR ---
MS RN NOTES-- UNABLE TO GIVE 2ND BAG OF POTASSIUM PT HAS 2 BAGS OF POTASSIUM WITH PHOSPHATE TO RUN FOR 3 HOURS EACH. CALLED PHARMACY AND STATED TO NONADMIN THE 2ND BAG AND ORDER A ONE TIME ONLY POTASSIUM 10MEQ/50ML.
[2019-03-07] MEDS ORDERED: POTASSIUM CHLORIDE 10 MEQ/50 ML PREMIXED IVPB FOR PERIPHERAL LINE IV ONE (16:30)
[2019-03-07] MEDS ORDERED: POTASSIUM CL. PREMIX PERIPHER. 50 ML IV SCH (16:30)
--- NOTE | 2019-03-07 18:29 | NUR ---
MS RN CLOSING NOTES NEEDS RENDERED. PT REMAINS NONVERBAL WITH SPONTANEOUS EYE OPENING. PT IS AFEBRILE. RESPIRATIONS ARE EVEN AND UNLABORED, NOT IN ANY ACUTE DISTRESS NOTED. NO FACIAL GRIMACING OR MOANING NOTED. MALICK MIDLINE INTACT, NO INFILTRATION NOTED. DRESSING KEPT CLEAN AND DRY. SAFETY MEASURES ARE IN PLACE. CALL LIGHT IS LEFT WITHIN REACH. REPOSITIONED PER PROTOCOL. WILL ENDORSE TO NEXT SHIFT FOR CONTINUITY OF CARE.
--- NOTE | 2019-03-07 19:00 | NUR ---
RN MS OPENING NOTES RECEIVED PATIENT IN BED AWAKE , NON VERBAL OPEN EYES, RESPONSIVE TO TACTILE AND VERBAL STIMULI. ON 3 L VIA NC , RESPIRATIONS EVEN AND UNLABORED WITH EQUAL RISE AND FALL OF CHEST DENIES, NO SOB PRESENT, APPEARS TO BE FREE OF PAIN NO FACIAL GRIMACING OR MOANS PRESENT, STONER CATHETER INTACT AND PATENT, NOTED URINE CLEAR YELLOW/PINK TINGED COLOR, F/C WITH PROPER ALIGNMENT, RIGHT UPPER ARM MIDLINE INTACT AND PATENT, NO REDNESS, NO INFILTRATION PRESENT, DRESSING TO SITE C/D/I, IV SITE TO LEFT FA INTACT AND PATENT SL. ORIENTED TO STAFF AND CALL LIGHT, SAFETY PRECAUTIONS IN PLACE, LOW BED AND LOCKED, REPOSITIONED HEELS OFFLOADED WITH PILLOW, WILL CONTINUE TO MONITOR AND ATTEND TO NEEDS.
[2019-03-07 20:00] VITALS: BP 115/73
[2019-03-07] MEDS: PIPERACILLIN /TAZOBACTAM 3.375 G in IV D5W 100 ML IV SCH (20:56)
[2019-03-07] MEDS ORDERED: PIPERACILLIN /TAZOBACTAM 3.375 G in IV D5W 50 ML IV SCH (21:00)
--- NOTE | 2019-03-07 22:30 | NUR ---
RN MS NOTE NOTED PATIENT WITH SPO2 89-90% ON 4L VIA NC ON ASPIRATION PRECAUTIONS REMAIN NPO UPON ASSESSMENT NOTED WITH GURGLE SOUNDS, SUCTIONED WITH YAUNKER NOTED WITH THICK YELLOW/WHITE PHLEM, GURGLING SOUNDS STILL NOTED CALLED RT FOR DEEP SUCTION, NOTED THICK WHITE/YELLOW , SP02 NOW AT 99% ON 3 L VIA NC VS 117/72,87,99%3L,17. AFEBRILE 98.0 REMAINS STABLE AT THIS TIME Addendum: 03/07/19 at 2259 by AYAAN FISHER RN HOB IS ELEVATED HIGH FOWLERS POSITION
--- NOTE | 2019-03-08 03:50 | NUR ---
RN MS NOTES PATIENT HAD SMALL BM FREQUENTLY REPOSITIONED AND OFFLOAD BONY PROMINENCE AND HEELS. PERINEAL CARE PROVIDED.
[2019-03-08] MEDS: PIPERACILLIN /TAZOBACTAM 3.375 G in IV D5W 100 ML IV SCH ×3 (04:42→19:57)
[2019-03-08 06:19] LABS: BASOPHILS % (AUTO) 0.1 % (0.0-2.0); HEMATOCRIT 34 % (33-45); HEMOGLOBIN 11.3 g/dL (11.5-14.8); LYMPHOCYTES # (AUTO) 1.9 /CMM (0.8-4.8); LYMPHOCYTES % (AUTO) 16.7 % (20.0-44.0); MEAN CORPUSCULAR HGB CONC 33 g/dl (31.0-36.0); MEAN CORPUSCULAR VOLUME 97 fL (82-100); MONOCYTES # (AUTO) 0.6 /CMM (0.1-1.30); NEUTROPHILS # (AUTO) 8.8 /CMM (1.8-8.9); NEUTROPHILS % (AUTO) 76.2 % (43.0-81.0); PLATELET COUNT (AUTO) 240 /CMM (150-450); RED BLOOD CELL COUNT(AUTO) 3.55 MIL/uL (4.0-5.2); WHITE BLOOD COUNT (AUTO) 11.5 K/uL (4.3-11.0)
[2019-03-08 06:27] LABS: CALCIUM, SERUM 9.5 mg/dL (8.5-10.1); CREATININE 0.8 mg/dL (0.6-1.3); MAGNESIUM 2.2 mg/dL (1.8-2.4); PHOSPHORUS 2.8 mg/dL (2.5-4.9); POTASSIUM 4.1 mmol/L (3.5-5.1)
--- NOTE | 2019-03-08 06:30 | NUR ---
RN MS CLOSING NOTES PATIENT IN BED AWAKE , NON VERBAL OPEN EYES, RESPONSIVE TO TACTILE AND VERBAL STIMULI. ON 3 L VIA NC REMAINED STABLE THROUGHOUT SHIFT, RESPIRATIONS EVEN AND UNLABORED WITH EQUAL RISE AND FALL OF CHEST DENIES, NO SOB PRESENT, APPEARS TO BE FREE OF PAIN NO FACIAL GRIMACING OR MOANS PRESENT, STONER CATHETER INTACT AND PATENT, NOTED URINE CLEAR YELLOW/PINK TINGED COLOR, F/C WITH PROPER ALIGNMENT DRAINING WELL, RIGHT UPPER ARM MIDLINE INTACT AND PATENT, NO REDNESS, NO INFILTRATION PRESENT, DRESSING TO SITE C/D/I, IV SITE TO LEFT FA INTACT AND PATENT SL. CALL LIGHT KEPT WITHIN REACH, FREQUENT CHECKS DONE THROUGHOUT SHIFT, ALL MEDS ABX GIVEN ORDERED, SAFETY PRECAUTIONS IN PLACE, LOW BED AND LOCKED, Q 2 HR REPOSITIONING RENDERED HEELS AND KNEES OFFLOADED WITH PILLOWS, WILL CONTINUE TO MONITOR AND ENDORSE TO NEXT SHIFT. Addendum: 03/08/19 at 0705 by AYAAN FISHER RN SODIUM 158 TRENDING DOWN HOSPITALIST AWARE WILL ENDORSE TO NEXT SHIFT FOR CONTINUITY OF CARE
--- NOTE | 2019-03-08 07:30 | NUR ---
MS RN RECEIVED ON BED, AWAKE,NON VERBAL PATIENT,NOT IN ANY FORM OF DISTRESS, RESPIRATIONS EVEN AND UNLABORED,NO SOB NOTED, LUNGS ARE CLEAR,ABDOMEN SOFT,HYPOACTIVE BOWEL SOUNDS,NO S/S OF PAIN AT THIS TIME, WILL MONITOR PATIENT.
[2019-03-08 08:00] VITALS: BP 122/75
--- NOTE | 2019-03-08 10:42 | NUR ---
WOUND CARE CONSULT: PT PRESENTS EXTREMELY THIN AND BONY WITH CURRENT OTTO SCORE OF 9 AND BLANCHABLE REDNESS TO SACRUM AND ELBOWS, PRESENT ON ADMISSION. RECOMMENDATIONS MADE FOR SKIN PROTECTION. DISCUSSED WITH NURSING STAFF. PT ON MELODIE ISOFLEX LOW AIRLOSS BED. MULTIPLE PILLOWS IN USE FOR OFFLOADING OF BONY PROMINENCES. DIETARY CONSULT ORDERED. WILL SEE PRN. ROMAN IN AGREEMENT WITH PLAN OF CARE. Addendum: 03/08/19 at 1044 by LISA LOPEZ WNDNU Amended: Links added.
--- NOTE | 2019-03-08 11:00 | NUR ---
MS RN WAS SEEN BY DR. VIEIRA ,WAS ABLE TO SPOKE W/ SISTER FRANKLIN.
[2019-03-08 13:17] LABS: *SPE A/G RATIO 0.6 (0.7-1.7); *SPE ALBUMIN 2.3 g/dL (2.9-4.4); *SPE ALPHA-1-GLOBULIN 0.5 g/dL (0.0-0.4); *SPE ALPHA-2-GLOBULIN 1.1 g/dL (0.4-1.0); *SPE BETA GLOBULIN 0.9 g/dL (0.7-1.3); *SPE GLOBULIN, TOTAL 3.6 g/dL (2.2-3.9); *SPE M-SPIKE Not Observed g/dL (Not Observed)
[2019-03-08 14:11] LABS: PTH, INTACT 40 pg/mL (15-65)
[2019-03-08 16:00] VITALS: BP 116/73
--- NOTE | 2019-03-08 18:30 | NUR ---
ms rn daughter called,agreed to have the g tube insertion, dr. lopez aware and will sched tomorrow.
--- NOTE | 2019-03-08 19:00 | NUR ---
ms rn at bedside, endorsed to table games shift manager for roldan.
[2019-03-08 20:00] VITALS: BP 107/54
--- NOTE | 2019-03-08 20:00 | NUR ---
MS RN NOTES RECEIVED PATIENT AWAKE IN BED WITH NO DISTRESS NOTED. CALL LIGHT WITHIN REACH. AT BEDSIDE. PATIENT SEEN AND EXAMINED BY DR. CHEEK WITH ORDERS TO MAINTAIN NPO STATUS FOR PEG PLACEMENT TOMORROW. TELEPHONE CONSENT OBTAINED FROM DTR YUDI ANTHONY AND COSIGNED WITH CHARGE NURSE. PERIPHERAL LINES INTACT AND PATENT. FC INTACT AND PATENT. NO FACIAL GRIMACING OR GROANING TO INDICATE PAIN OR DISCOMFORT. BED IN LOW LOCK SETTING. BED ALARM ON AND FUNCTIONING PROPERLY. ALL BELONGINGS KEPT NEAR BEDSIDE. WILL CONTINUE TO MONITOR.
[2019-03-09] MEDS: IV D5W 1,000 ML IV PRN ×2 (02:37→18:20)
[2019-03-09] MEDS: PIPERACILLIN /TAZOBACTAM 3.375 G in IV D5W 100 ML IV SCH ×3 (03:59→19:31)
--- NOTE | 2019-03-09 06:51 | NUR ---
MS RN NOTES PATIENT ASLEEP IN BED WITH NO DISTRESS NOTED. CALL LIGHT WITHIN REACH. NO FACIAL GRIMACING OR GROANING TO INDICATE PAIN OR DISCOMFORT. FC INTACT AND PATENT AND DRAINED 450ML YELLOW CLEAR URINE DURING SHIFT. ALL DUE MEDS GIVEN ORDERED WITH NO ASE NOTED. NPO STATUS OBSERVED AND MAINTAINED DURING SHIFT. CONTACT ISOLATION MAINTAINED. BED IN LOW LOCK SETTING. BED ALARM ON AND FUNCTIONING PROPERLY. ALL BELONGINGS KEPT NEAR BEDSIDE. WILL ENDORSE TO ONCOMING SHIFT.
--- NOTE | 2019-03-09 07:35 | NUR ---
MS RN RECEIVED ON BED, AWAKE,NONVERBAL PATIENT, NO DISTRESS NOTED,WILL MONITOR PATIENT.
[2019-03-09 08:00] VITALS: BP 124/66
--- NOTE | 2019-03-09 08:00 | NUR ---
MS RN CALLED DR. CHEEK FOR PEG TUBE PLACEMENT, WILL DO IT IF NA WILL GO DOWN, DR VIEIRA IS AWARE, DAUGHTER NOTIFIED.
--- NOTE | 2019-03-09 09:50 | NUR ---
MS GONZÁLES WAS SEEN BY DR. ISHA Sanchez/ ORDERS MADE AND CARRIED OUT.
[2019-03-09 16:00] VITALS: BP 105/61
--- NOTE | 2019-03-09 16:00 | NUR ---
ms rn was seen by dr. jessica hernandez/ orders made and carried out.
--- NOTE | 2019-03-09 17:44 | NUR ---
ms rn on bed, no distress noted,all needs attended.
[2019-03-09 17:45] LABS: CREATININE 0.7 mg/dL (0.6-1.3); POTASSIUM 3.6 mmol/L (3.5-5.1)
--- NOTE | 2019-03-09 18:08 | NUR ---
ms rn new na result - 147 - dr. lopez made aware.
--- NOTE | 2019-03-09 19:30 | NUR ---
MS RN NOTES RECEIVED ON BED A/O X1,SPEAK ECUADOREAN,TE-MOAK ON BOTH EARS.STONER CATH IN PLACE DRAINING YELLOWISH OUTPUT.NPO STATUS,FAILED SWALLOW EVAL.WITH LEFT ARM SALINE LOCK INTACT AND PATENT,WITH MALICK MIDLINE RUNNING IVF AT 120ML/HR RATE,SITE PATENT.ISOLATION PRECAUTION FOR ESBL URINE.WILL CONTINUE TO MONITOR STATUS.
[2019-03-09 20:00] VITALS: BP 121/48
--- NOTE | 2019-03-09 21:30 | NUR ---
MS RN NOTES NOTIFIED BY CHARGE NURSE,TO FOLLOW CASE AFTER 8AM FOR PEG PLACEMENT BY DR CHEEK.
[2019-03-10] MEDS: PIPERACILLIN /TAZOBACTAM 3.375 G in IV D5W 100 ML IV SCH ×3 (04:05→20:00)
--- NOTE | 2019-03-10 06:18 | NUR ---
MS RN NOTES SLEPT WELL AT NIGHT IVF IN PROGRESS ON RIGHT UPPER ARM MIDLINE.STONER CATH REMAINS PATENT WITH 200ML OUTPUT.KEPT NPO,GOING FOR PEG PLACEMENT AFTER [address] CHEEK.CONSENT ON CHART.REPOSITION PER PROTOCOL,IN NO ACUTE DISTRESS.WILL ENDORSE TO DAY NURSE FOR HU.
[2019-03-10 06:42] LABS: CALCIUM, SERUM 8.6 mg/dL (8.5-10.1); CREATININE 0.6 mg/dL (0.6-1.3); MAGNESIUM 1.6 mg/dL (1.8-2.4); PHOSPHORUS 2.6 mg/dL (2.5-4.9)
[2019-03-10 06:45] LABS: BASOPHILS % (AUTO) 0.1 % (0.0-2.0); EOSINOPHILS % (AUTO) 6.1 % (0.0-6.0); HEMATOCRIT 30 % (33-45); LYMPHOCYTES # (AUTO) 1.8 /CMM (0.8-4.8); LYMPHOCYTES % (AUTO) 23.5 % (20.0-44.0); MEAN CORPUSCULAR HGB CONC 34 g/dl (31.0-36.0); MEAN CORPUSCULAR VOLUME 92 fL (82-100); MONOCYTES # (AUTO) 0.5 /CMM (0.1-1.30); MONOCYTES % (AUTO) 6.4 % (2.0-12.0); NEUTROPHILS # (AUTO) 4.9 /CMM (1.8-8.9); NEUTROPHILS % (AUTO) 63.9 % (43.0-81.0); PLATELET COUNT (AUTO) 255 /CMM (150-450); RED BLOOD CELL COUNT(AUTO) 3.21 MIL/uL (4.0-5.2); WHITE BLOOD COUNT (AUTO) 7.7 K/uL (4.3-11.0)
--- NOTE | 2019-03-10 06:45 | NUR ---
MS RN NOTES REPORTED BY JUN VENTURE CAPITAL ANALYST,POTASSIUM LEVEL THIS MORNING 2.5 AMD MAGNESIUM LEVEL 1.6.TORY ACNP MADE AWARE WITH NEW ORDERS NOTED.
[2019-03-10 06:48] LABS: POTASSIUM 2.5 mmol/L (3.5-5.1)
[2019-03-10] MEDS ORDERED: POTASSIUM CHLORIDE 10 MEQ/50 ML PREMIXED IVPB FOR PERIPHERAL LINE IV ONE (07:30)
[2019-03-10] MEDS ORDERED: Magnesium 1GM/D5W 100ML PREMIX PIGGYBACK IV ONE (07:30)
--- NOTE | 2019-03-10 07:35 | NUR ---
MS RN RECEIVED ON BED, AWAKE,ALERT,ORIENTED X1,NOT IN ANY FORM OF DISTRESS, RESPIRATIONS EVEN AND UNLABORED,NO SOB NOTED,LOW POTTASIUM AND MAG TODAY, STARTED REPLACING NOW FOR SX TODAY, PEG PLACEMENT.
[2019-03-10 08:00] VITALS: BP 93/54
--- NOTE | 2019-03-10 09:00 | NUR ---
MS RN NPO AT THIS TIME, TEXT DR. CHEEK FOR LOW K AND MAG, WILL DO SURGERY IN AM.
--- NOTE | 2019-03-10 11:00 | NUR ---
MS GONZÁLES WAS SEEN BY DR. ISHA Sanchez/ ORDERS MADE AND CARRIED OUT.
[2019-03-10 16:00] VITALS: BP 97/57
[2019-03-10] MEDS: IV D5W 1,000 ML IV PRN (17:42)
--- NOTE | 2019-03-10 18:44 | NUR ---
MS RN ON BED, NO DISTRESS NOTED ,ALL NEEDS ATTENDED.
[2019-03-10 20:00] VITALS: BP 116/55
[2019-03-11] MEDS: PIPERACILLIN /TAZOBACTAM 3.375 G in IV D5W 100 ML IV SCH ×3 (04:47→20:18)
--- NOTE | 2019-03-11 06:43 | NUR ---
MS RN NOTES AWAKE & RESPONSIVE. NOT IN ANY DISTRESS. NO SOB NOTED. DENIES ANY PAIN OR DISCOMFORT AT THIS TIME. WITH IVF INFUSING WELL. MONITORED ACCORDINGLY. CALL LIGHT WITHIN REACH. BED IN LOWEST POSITION. SR UP X 3 WITH BED ALARM ON FOR FOR SAFETY. WILL ENDORSE TO NEXT SHIFT.
[2019-03-11 07:05] LABS: BASOPHILS % (AUTO) 0.1 % (0.0-2.0); EOSINOPHILS % (AUTO) 3.9 % (0.0-6.0); HEMATOCRIT 30 % (33-45); HEMOGLOBIN 10.2 g/dL (11.5-14.8); LYMPHOCYTES # (AUTO) 1.8 /CMM (0.8-4.8); LYMPHOCYTES % (AUTO) 21.8 % (20.0-44.0); MEAN CORPUSCULAR HGB CONC 34 g/dl (31.0-36.0); MEAN CORPUSCULAR VOLUME 92 fL (82-100); MONOCYTES # (AUTO) 0.4 /CMM (0.1-1.30); MONOCYTES % (AUTO) 5.1 % (2.0-12.0); NEUTROPHILS # (AUTO) 5.8 /CMM (1.8-8.9); NEUTROPHILS % (AUTO) 69.1 % (43.0-81.0); PLATELET COUNT (AUTO) 274 /CMM (150-450); RED BLOOD CELL COUNT(AUTO) 3.29 MIL/uL (4.0-5.2); WHITE BLOOD COUNT (AUTO) 8.3 K/uL (4.3-11.0)
[2019-03-11 07:19] LABS: CALCIUM, SERUM 8.4 mg/dL (8.5-10.1); CREATININE 0.6 mg/dL (0.6-1.3); MAGNESIUM 2.1 mg/dL (1.8-2.4); POTASSIUM 2.9 mmol/L (3.5-5.1)
--- NOTE | 2019-03-11 07:32 | NUR ---
MS RN OPENING NOTES RECEIVED PT LAYING IN BED W/ HOB SLIGHTLY ELEVATED. PT IS NONVERBAL W/ SPONTANEOUS EYE OPENING, AFEBRILE. RESPIRATIONS ARE EVEN AND UNLABORED, NOT IN ANY ACUTE DISTRESS NOTED. NO FACIAL GRIMACING OR MOANING AT THIS TIME. IV SITE L ARM INTACT, NO INFILTRATION NOTED. DRESSING KEPT CLEAN AND DRY. STONER CATH IS IN PLACE, TUBING FREE OF KINKS, DRAINING CLEAR YELLOW URINE. CALL LIGHT IS LEFT WITHIN REACH. WILL MONITOR THROUGHOUT SHIFT FOR CONTINUITY OF CARE.
[2019-03-11 08:00] VITALS: BP 98/56
[2019-03-11] MEDS: POTASSIUM CL. PREMIX PERIPHER. 50 ML IV SCH ×6 (08:36→15:34)
--- NOTE | 2019-03-11 09:45 | NUR ---
MS RN NOTES-- PT P/U BY OR IN STABLE CONDITION VIA MANE FOR PEG PLACEMENT.
--- NOTE | 2019-03-11 11:50 | NUR ---
MS RN NOTES-- PT CAME BACK FROM OR, S/P PEG TUBE PLACEMENT, IN STABLE CONDITION. RECEIVED ORDERS PER DR. CHEEK, USE PEG TUBE FOR WATER AND MEDS IN 4 HOURS, USE PEG FOR FEEDING TOMORROW AM." NOTED AND CARRIED OUT. WILL CONTINUE TO MONITOR THE PT FOR CONTINUITY OF CARE.
--- NOTE | 2019-03-11 15:38 | NUR ---
MS RN NOTES-- PT TURNED AND REPOSITIONED. ABDOMINAL BINDER APPLIED. PER , PT HAS A HISTORY OF PULLING OUT PEG TUBE. WILL CONTINUE TO MONITOR.
[2019-03-11 16:00] VITALS: BP 97/53
--- NOTE | 2019-03-11 18:27 | NUR ---
MS RN CLOSING NOTES NEEDS RENDERED. PT IS RESTING COMFORTABLY IN BED. AROUSABLE TO VERBAL AND TACTILE STIMULI. NO FACIAL GRIMACING OR MOANING NOTED. IV SITE TO LEFT MAR, MIDLINE TO MALICK INTACT, NO INFILTRATION NOTED. DRESSING KEPT CLEAN AND DRY. STONER CATH IN PLACE, TUBING FREE OF KINKS AND DRAINING CLEAR/YELLOW URINE. REPOSITIONED Q2H. CALL LIGHT IS LEFT WITHIN REACH. WILL ENDORSE TO NEXT SHIFT FOR CONTINUITY OF CARE.
[2019-03-11 20:00] VITALS: BP_SYST 110; BP_SYST 121; BP_DIAS 68; BP_DIAS 72
--- NOTE | 2019-03-11 20:02 | NUR ---
RN OPENING NOTES RECEIVED PATIENT RESTING COMFORTABLY IN BED. PATIENT IS AROUSABLE TO VERBAL AND TACTILE STIMULI. NO FACIAL GRIMACING OR MOANING NOTED. IV SITE INTACT AND PATENT. STONER CATH IN PLACE. SAFETY PRECAUTIONS IMPLEMENTED. CALL LIGHT WITHIN REACH. WILL CONTINUE TO MONITOR PATIENT THROUGHOUT THE SHIFT.
[2019-03-11 20:41] VITALS: BP 121/68
--- NOTE | 2019-03-12 03:02 | NUR ---
RN CLOSING NOTES PATIENT IS RESTING COMFORTABLY IN BED. PATIENT IS AROUSABLE TO VERBAL AND TACTILE STIMULI. NO FACIAL GRIMACING OR MOANING NOTED. IV SITE INTACT AND PATENT. STONER CATHETER IN PLACE, FREE FROM KINKS, FLOWING WELL WITH CLEAR YELLOW URINE. SAFETY PRECAUTIONS IMPLEMENTED. CALL LIGHT WITHIN REACH. ENDORSED PATIENT TO ELIECER LUNA FOR CONTINUITY OF CARE.
[2019-03-12] MEDS: PIPERACILLIN /TAZOBACTAM 3.375 G in IV D5W 100 ML IV SCH ×2 (03:47→12:08)
[2019-03-12 06:19] LABS: BASOPHILS % (AUTO) 0.2 % (0.0-2.0); EOSINOPHILS % (AUTO) 2.7 % (0.0-6.0); HEMATOCRIT 31 % (33-45); HEMOGLOBIN 10.7 g/dL (11.5-14.8); LYMPHOCYTES # (AUTO) 1.9 /CMM (0.8-4.8); LYMPHOCYTES % (AUTO) 26.6 % (20.0-44.0); MEAN CORPUSCULAR HGB CONC 34 g/dl (31.0-36.0); MEAN CORPUSCULAR VOLUME 92 fL (82-100); MONOCYTES # (AUTO) 0.5 /CMM (0.1-1.30); MONOCYTES % (AUTO) 6.8 % (2.0-12.0); NEUTROPHILS # (AUTO) 4.4 /CMM (1.8-8.9); NEUTROPHILS % (AUTO) 63.7 % (43.0-81.0); PLATELET COUNT (AUTO) 257 /CMM (150-450)
[2019-03-12 06:45] LABS: ALBUMIN 2.4 g/dL (3.4-5.0); BILIRUBIN,TOTAL 0.6 mg/dL (0.2-1.0); CALCIUM, SERUM 8.7 mg/dL (8.5-10.1); CREATININE 0.7 mg/dL (0.6-1.3); MAGNESIUM 1.9 mg/dL (1.8-2.4); PHOSPHORUS 2.5 mg/dL (2.5-4.9); POTASSIUM 3.2 mmol/L (3.5-5.1); TOTAL PROTEIN, SERUM 6.5 g/dL (6.4-8.2)
--- NOTE | 2019-03-12 07:23 | NUR ---
MS RN NOTES PT IN BED RESTING COMFORTABLY. PT EASILY AWOKEN VERBALLY OR BY TOUCH. RESPIRATIONS EVEN AND UNLABORED WITH NO S/S OF ACUTE DISTRESS OR SOB NOTED. NO FACIAL GRIMACING OR MOANING NOTED. IV MIDLINE INTACT AND PATENT. STONER CATH IN PLACE DRAINING WELL. SAFETY PRECAUTIONS IMPLEMENTED WITH BED IN LOWEST LOCKED POSITION AND SIDE RAILS UP X2. CALL LIGHT WITHIN REACH. WILL ENDORSE TO ONCOMING NURSE FOR HU.
--- NOTE | 2019-03-12 07:51 | NUR ---
M/S RN OPENING NOTES RECEIVED PATIENT ON BED, AWAKE. A/O X 1 TO NAME AND NON VERBAL. RESPIRATION EVEN AND NON LABORED WITH NO SHORTNESS OF BREATH NOTED. ABDOMEN SOFT AND NON DISTENDED WITH ACTIVE BOWEL SOUNDS, FC PRESENT. ON ISOLATION FOR ESBL URINE. SKIN WARM TO TOUCH AND DRY. NO S/SX OF PAIN AND DISCOMFORT. IV SITE AT LEFT AC AND RIGHT UPPER ARM MIDLINE WITH NO S/SX OF INFILTRATION. D5W RUNNING AT 30 ML/HR. PLACED BED ON LOCK POSITION, SIDE RAILS UP AND NEAR STATION FOR CONTINUOUS CARE. WILL CONTINUE TO MONITOR.
[2019-03-12 08:00] VITALS: BP 95/54
[2019-03-12] MEDS: POTASSIUM CL. PREMIX PERIPHER. 50 ML IV SCH ×4 (10:07→13:10)
--- NOTE | 2019-03-12 10:26 | NUR ---
M/S RN NOTES RECEIVED NEW ORDER TO START TUBE FEEDING FROM DR. ISHA VASQUEZ 1.2 AT 10 ML/HR. ADVANCE 10 ML/HR EVERY 10-12 HOURS TO 45 ML/HR X 24 GOAL TO PROVIDE. ORDER READ BACK, NOTED AND CARRIED OUT. PATIENT NOTIFIED
[2019-03-12] MEDS ORDERED: JEVITY 1.2 CAL 1,000 ML BOTTLE GT PRN (10:30)
[2019-03-12 16:00] VITALS: BP 129/59
--- NOTE | 2019-03-12 16:30 | NUR ---
M/S RN NOTES GAVE REPORT TO ELIECER RICHARD AT [facility] FOR PATIENT DISCHARGE INFORMATION
--- NOTE | 2019-03-12 16:55 | NUR ---
M/S LAND LEVELER NOTES PATIENT DISCHARGED TO [facility] ACCOMPANIED BY 3 EMT'S VIA [facility]. PATIENT A/O X 1, NON VERBAL WITH GERMAN SPEAKING ONLY. NO PRESENCE OF ACUTE RESPIRATORY DISTRESS. SKIN WARM TO TOUCH, DRY AND INTACT EXCEPT PEG SITE WITH PLACEMENT OCCURRED ON 03/11/19. RIGHT UPPER MIDLINE PLACED WITH PATIENT FOR ATB TO BE CONTINUED AT REHAB. FC EMPTIED AND IN PLACE DUE TO ESBL URINE ISOLATION. ABD SOFT AND NON DISTENDED WITH BM DONE TODAY. NO S/SX OF PAIN AND DISCOMFORT NOTED. EXIT CARE GIVEN TO JOSE MANUEL, RN AND EMT. LAST VS OF B/P 129/59, AR 63, RR 16, T 98, O2 95% RA. PATIENT LEFT IN SAFE CONDITION.
== END 2019-03-12 17:15 | DRG 720 ==
LOC: ER 02:35 → TELE 05:11 → MED 08:08 → TELE 16:47 → MED 03-07 10:48
PROVIDERS: ADMIT Nurse Practitioner Acute Care
DX: A41.9 Sepsis, unspecified organism (principal); N17.0 Acute kidney failure with tubular necrosis; J69.0 Pneumonitis due to inhalation of food and vomit; G93.49 Other encephalopathy; R53.2 Functional quadriplegia; E44.0 Moderate protein-calorie malnutrition; R13.10 Dysphagia, unspecified; N39.0 Urinary tract infection, site not specified; R62.7 Adult failure to thrive; E87.0 Hyperosmolality and hypernatremia; E86.0 Dehydration; E78.5 Hyperlipidemia, unspecified; F01.50 Vascular dementia, unspecified severity, without behavioral disturbance, psychotic disturbance, mood disturbance, and anxiety; I25.10 Atherosclerotic heart disease of native coronary artery without angina pectoris; K21.9 Gastro-esophageal reflux disease without esophagitis; K44.9 Diaphragmatic hernia without obstruction or gangrene; F41.9 Anxiety disorder, unspecified; E03.9 Hypothyroidism, unspecified; E87.6 Hypokalemia; G30.9 Alzheimer's disease, unspecified; F02.80 Dementia in other diseases classified elsewhere, unspecified severity, without behavioral disturbance, psychotic disturbance, mood disturbance, and anxiety; G40.909 Epilepsy, unspecified, not intractable, without status epilepticus; Z87.440 Personal history of urinary (tract) infections; Z79.899 Other long term (current) drug therapy; Z79.82 Long term (current) use of aspirin; E86.9 Volume depletion, unspecified; D68.59 Other primary thrombophilia; K31.9 Disease of stomach and duodenum, unspecified; I10 Essential (primary) hypertension
CPT/HCPCS: 36415; 36600; 43246; 70450-TC; 71045-TC; 76770-TC; 80048-TC; 80053-TC; 80061-TC; 80076-TC; 81000-TC; 82550-TC; 82570-TC; 82803-TC; 82962-TC; 83605-TC; 83735-TC; 83880; 83970; 84100-TC; 84155; 84155-TC; 84165; 84300-TC; 84484-TC; 85025-TC; 85730-TC; 87040-TC; 87081-TC; 87086-TC; 92526; 92611-TC; 94799-TC; A4216; G0378; J2185; J2543; J2704; J3475; J3480; J3490; J7030; J7060; J7070